=== PATIENT | female | born 1980 | race Hispanic/Latino ===

== ENCOUNTER 2017-11-02 09:39 | Emergency (ER) | payer SELFPAY ==
[2017-11-02 10:47] LABS: Bilirubin,Urine NEG (Negative); Blood,Urine LG (Negative); Ketones,Urine NEG (Negative); Leukocyte Esterase,Urine TR (Negative); Nitrite,Urine NEG (Negative); Urobilinogen,Urine < 2.0 mg/dL (<2.0)
[2017-11-02 10:49] LABS: RBC,Urine > 182.0 /HPF (0.0-6.0)
[2017-11-02 12:40] LABS: Albumin 4.1 g/dL (3.9-5); Albumin/Globulin Ratio 1.2 %; Bilirubin,Total 0.3 mg/dL (0.1-1.2); Chloride 99.2 mmol/L (98-107); Potassium 4.2 mmol/L (3.6-5.0); Total Protein 7.4 g/dL (6.3-8.2)
[2017-11-02 13:52] LABS: Basophils % (Auto) 0.2 % (0.0-1.8); Eosinophils % (Auto) 0.4 % (0.0-4.3); Hematocrit 23.9 % (30.3-42.9); Hemoglobin 7.2 gm/dl (10.1-14.3); Mean Corpuscular HGB Conc 30 % (30-34); Mean Corpuscular Hemoglobin 24 pg (28-32); Mean Corpuscular Volume 80 fl (79-97); Platelet Count 263 K/mm3 (140-440); Red Blood Count 3.01 M/mm3 (3.65-5.03); Red Cell Distribution Width 16.1 % (13.2-15.2); White Blood Count 11.8 K/mm3 (4.5-11.0)
[2017-11-02 15:38] LABS: Creatine Kinase MB 2.6 ng/mL (0.0-4.0); Phosphorous 3.7 mg/dL (2.5-4.5)
[2017-11-02] MEDS ORDERED: NORMODYNE IV ONE (16:15)
--- NOTE | 2017-11-02 16:16 | Cat Scan Report ---
FINAL REPORT EXAM: CT ABDOMEN PELVIS WO CON HISTORY: abd pain TECHNIQUE: CT examination of the abdomen and pelvis without IV contrast PRIORS: 10/13/2015 FINDINGS: Slight lumbar spine curvature with mid right apex. Normal noncontrast appearance of the liver, gallbladder, adrenals, pancreas, and spleen. Normal caliber abdominal aorta and IVC. No retroperitoneal adenopathy. No evidence of mesenteric mass. Again noted are diffusely enlarged kidneys bilaterally containing innumerable fluid density cysts. Multiple bilateral cysts also contain slightly hyperdense homogeneous material suggestive of complex fluid with proteinaceous material or partial blood products. Many of the cysts show interval enlargement from comparison. Also, more cysts contain dense material. Minimal scattered wall calcification also noted in some cysts bilaterally. No definite evidence of renal collecting system calculus or hydronephrosis. No definite ureteral calculus or distention. Very small fat containing umbilical hernia. Normal-appearing stomach and duodenum. No small bowel distention in the abdomen and pelvis. No pelvic free fluid. Decompressed urinary bladder. Normal-appearing rectum. Slight sigmoid diverticulosis without evidence of acute inflammation. Nonspecific low-density foci in the cervix may be nabothian. Otherwise normal-appearing uterus and adnexa. No gross ascites, free air, or colonic distention. Normal-appearing cecum, terminal ileum, and appendix. IMPRESSION: Findings again most compatible with polycystic kidney disease. Cysts demonstrate interval enlargement. More cysts contain dense material which may be proteinaceous or partial blood products. Acuity of a hemorrhagic cyst is indeterminate. Slight sigmoid diverticulosis Nonspecific low-density foci in the cervix may be nabothian cysts
[2017-11-02] MEDS ORDERED: ZOFRAN IV ONE (16:17)
[2017-11-02] MEDS ORDERED: DILAUDID IV ONE (16:17)
[2017-11-02 16:18] LABS: Urine Drugs of Abuse Note Disclamer
--- NOTE | 2017-11-02 16:31 | XRay Report ---
FINAL REPORT PROCEDURE: XR CHEST 1V AP TECHNIQUE: Chest radiograph anteroposterior view. CPT 71150 HISTORY: hypertension COMPARISON: None FINDINGS: Heart: Normal. Mediastinum/Vessels: Normal. Lungs/Pleural space: Normal. Bony thorax: No acute osseous abnormality. Life support devices: None. IMPRESSION: No radiographically evident acute cardiopulmonary disease.
[2017-11-02] MEDS ORDERED: NACL 0.9% 1000 ML 1,000 ML IV ONE (17:35)
[2017-11-02] MEDS ORDERED: NACL 0.9% 500 ML 500 ML IV ONE (17:42)
--- NOTE | 2017-11-02 17:50 | Emergency Department Report ---
ED Abdominal Pain HPI - General Chief Complaint: Abdominal Pain Stated Complaint: ABDOMINAL PAIN,HIGH BLOOD PRESSURE Time Seen by Provider: 11/02/17 16:23 Source: patient Mode of arrival: Ambulatory Limitations: No Limitations - History of Present Illness Initial Comments: 37 yo female who comes in today due to abdominal pain. She states that she's had vaginal bleeding times ten days. She normally has extensive menstrual cycles. She describes the abdominal pain as left upper quadrant, 10/10, with no radiation, but admits to nausea/vomiting. Patient hasn't taken any meds times greater than six months for her medical history. Last meal was earlier this am. She admits to having nausea/vomiting after eating on today. MD Complaint: abdominal pain -: days(s) (ten days ) Location: LUQ, LLQ Radiation: none Severity scale (0 -10): 0 Quality: cramping, aching Consistency: constant Improves With: nothing Worsens With: eating Context: other (excessive bleeding during menstrual cycles ) Associated Symptoms: nausea, vomiting Treatments Prior to Arrival: other (none) - Related Data LMP (females 10-50): this week (currently) Home Medications Medication Instructions Recorded Confirmed Last Taken Acetaminophen [Tylenol Extra 500 mg PO Q6H PRN 11/02/17 11/02/17 Unknown Strength] Ibuprofen [Ibuprofen Ib] 200 mg PO PRN PRN 11/02/17 11/02/17 Unknown Allergies Allergy/AdvReac Type Severity Reaction Status Date / Time No Known Allergies Allergy Verified 04/08/15 16:47 ED Review of Systems ROS: Stated complaint: ABDOMINAL PAIN,HIGH BLOOD PRESSURE Other details as noted in HPI Constitutional: malaise, weakness ENT: denies: ear pain, throat pain Respiratory: denies: cough, shortness of breath, wheezing Cardiovascular: denies: chest pain, palpitations Endocrine: no symptoms reported Gastrointestinal: as per HPI, abdominal pain, nausea, vomiting Genitourinary: denies: urgency, dysuria, discharge Musculoskeletal: denies: back pain, joint swelling, arthralgia Skin: denies: rash, lesions Neurological: denies: headache, weakness, paresthesias Psychiatric: denies: anxiety, depression Hematological/Lymphatic: denies: easy bleeding, easy bruising ED Past Medical Hx - Past Medical History Previous Medical History?: Yes Hx Hypertension: Yes Hx Diabetes: Yes Additional medical history: FIBROIDS. POLYCYSTIC KIDNEYS - Surgical History Past Surgical History?: Yes Additional Surgical History: D & C. OVARY SURGERY? - Social History Smoking Status: Never Smoker Substance Use Type: None - Medications Home Medications: Home Medications Medication Instructions Recorded Confirmed Last Taken Type Acetaminophen [Tylenol Extra 500 mg PO Q6H PRN 11/02/17 11/02/17 Unknown History Strength] Ibuprofen [Ibuprofen Ib] 200 mg PO PRN PRN 11/02/17 11/02/17 Unknown History ED Physical Exam - General Limitations: No Limitations General appearance: alert, in no apparent distress - Head Head exam: Present: atraumatic, normocephalic - Eye Eye exam: Present: normal appearance - ENT ENT exam: Present: mucous membranes moist - Neck Neck exam: Present: normal inspection - Respiratory Respiratory exam: Present: normal lung sounds bilaterally. Absent: respiratory distress - Cardiovascular Cardiovascular Exam: Present: tachycardia - GI/Abdominal GI/Abdominal exam: Present: tenderness (left upper/lower quadrant ) - Extremities Exam Extremities exam: Present: normal inspection - Back Exam Back exam: Present: normal inspection - Neurological Exam Neurological exam: Present: alert, oriented X3 - Psychiatric Psychiatric exam: Present: normal affect, normal mood - Skin Skin exam: Present: warm, dry, intact, normal color. Absent: rash ED Course Vital Signs 11/02/17 11/02/17 11/02/17 09:44 14:58 16:00 Temperature 98.1 F Pulse Rate 101 H 114 H 102 H Respiratory 20 20 18 Rate Blood Pressure 226/101 Blood Pressure 221/120 [Left] O2 Sat by Pulse 98 99 98 Oximetry 11/02/17 11/02/17 11/02/17 16:11 16:14 16:15 Temperature Pulse Rate 102 H Respiratory 20 20 Rate Blood Pressure Blood Pressure 213/104 213/104 [Left] O2 Sat by Pulse 99 100 Oximetry 11/02/17 11/02/17 11/02/17 16:16 16:30 16:46 Temperature Pulse Rate 97 H 79 77 Respiratory 29 H 18 17 Rate Blood Pressure 213/104 210/98 210/98 Blood Pressure [Left] O2 Sat by Pulse 97 83 L 88 Oximetry 11/02/17 11/02/17 11/02/17 17:00 17:30 18:00 Temperature Pulse Rate 81 84 80 Respiratory 20 19 16 Rate Blood Pressure 166/88 166/88 196/85 Blood Pressure [Left] O2 Sat by Pulse 88 95 98 Oximetry 11/02/17 11/02/17 11/02/17 18:16 18:24 18:30 Temperature Pulse Rate 84 88 91 H Respiratory 19 20 Rate Blood Pressure 196/85 191/88 188/78 Blood Pressure [Left] O2 Sat by Pulse 97 100 Oximetry 11/02/17 18:46 Temperature Pulse Rate 101 H Respiratory 15 Rate Blood Pressure 188/78 Blood Pressure [Left] O2 Sat by Pulse 100 Oximetry - Reevaluation(s) Reevaluation #1: 11/02/17 19:44 Patient received ivf's, antibiotics, and a unit of blood. Appears to be a chronic worsening condition. Needs to see balloon dipper and nephrology. Hospitalist to see and evaluate the patient. ED Medical Decision Making - Lab Data Result diagrams: 11/02/17 13:45 11/02/17 10:01 - Radiology Data Radiology results: report reviewed CT abdomen/pelvis revealed polycystic kidney disease. - Medical Decision Making Polycystic kidney disease Anemia Uti Medication non-compliance - Differential Diagnosis Polycystic kidney disease, anemia, uti Critical care attestation.: If time is entered above; I have spent that time in minutes in the direct care of this critically ill patient, excluding procedure time. ED Disposition Clinical Impression: Polycystic kidney disease, Noncompliance, Anemia, UTI (urinary tract infection) , Dehydration Disposition: OP ADMIT IP TO THIS HOSP Is pt being admited?: Yes Does the pt Need Aspirin: No Condition: Stable Instructions: Abdominal Pain (ED) Referrals: PRIMARY CARE [Primary Care Provider] - 3-5 Days Time of Disposition: 19:54
[2017-11-02 18:09] LABS: INR 1.18 (0.87-1.13); Partial Thromboplastin Time 32.3 Sec. (24.2-36.6)
[2017-11-02] MEDS ORDERED: APRESOLINE IV ONE (18:12)
[2017-11-02] MEDS ORDERED: cefTRIAXone 1 GM in NACL 0.9% 20 ML IV ONE (18:30)
[2017-11-02 19:05] VITALS: BP 188/78
--- NOTE | 2017-11-02 19:48 | History and Physical Report ---
History of Present Illness Chief complaint: My stomach hurts History of present illness: 37 yo female with HTN, DM, Uterine Fibroids, who comes in today due to abdominal pain. Pt states that she's had vaginal bleeding times ten days. She normally has extensive menstrual cycles. She describes the abdominal pain as left upper quadrant, 10/10, with no radiation, but admits to nausea/vomiting. Patient hasn't taken any meds times greater than six months for her medical history. Last meal was earlier this am. She admits to having nausea/vomiting after eating on today. Pt seen and evaluated in ED. CT Abdomen pelvis was unremarkable for acute findings. Pt medically optimized and discharged home. Pt instructed to f/u pcp 1wk. Past History Past Medical History: diabetes, hypertension Past Surgical History: Other (D&C) Social history: single. denies: smoking, alcohol abuse Family history: diabetes, hypertension Medications and Allergies Allergies Allergy/AdvReac Type Severity Reaction Status Date / Time No Known Allergies Allergy Verified 04/08/15 16:47 Home Medications Medication Instructions Recorded Confirmed Last Taken Type Acetaminophen [Tylenol Extra 500 mg PO Q6H PRN 11/02/17 11/02/17 Unknown History Strength] HYDROmorphone [Dilaudid] 1 mg PO Q4HR #20 tablet 11/02/17 Unknown Rx Ibuprofen [Ibuprofen Ib] 200 mg PO PRN PRN 11/02/17 11/02/17 Unknown History Lisinopril [Zestril TAB] 40 mg PO QDAY #30 tablet 11/02/17 Unknown Rx Review of Systems Constitutional: no weight loss, no weight gain, no fever, no chills Ears, nose, mouth and throat: no ear pain, no ear discharge, no tinnitis Breasts: no change in shape, no swelling, no mass Cardiovascular: no chest pain, no orthopnea, no palpitations Respiratory: no cough, no cough with sputum, no excessive sputum Gastrointestinal: abdominal pain, no change in bowel habits, no hematemesis, no coffee ground emesis Genitourinary Female: no pelvic pain, no flank pain, no menorrhagia Rectal: no pain, no incontinence, no bleeding Musculoskeletal: no neck pain, no shooting arm pain, no arm numbness/tingling Integumentary: no rash, no pruritis, no redness Neurological: no head injury, no transient paralysis, no paralysis, no weakness Psychiatric: no anxiety, no memory loss, no change in sleep habits Endocrine: no cold intolerance, no polyphagia Hematologic/Lymphatic: no easy bruising, no easy bleeding Allergic/Immunologic: no urticaria, no allergic rhinitis, no wheezing Exam - Constitutional Vitals: Temp Pulse Resp BP Pulse Ox 98.1 F 101 H 15 188/78 100 11/02/17 09:44 11/02/17 18:46 11/02/17 18:46 11/02/17 18:46 11/02/17 18:46 General appearance: Present: no acute distress, well-nourished - EENT Eyes: Present: PERRL ENT: hearing intact, clear oral mucosa - Neck Neck: Present: supple, normal ROM - Respiratory Respiratory effort: normal Respiratory: bilateral: CTA - Cardiovascular Heart Sounds: Present: S1 & S2. Absent: rub, click - Extremities Extremities: pulses symmetrical, No edema Peripheral Pulses: within normal limits - Abdominal General gastrointestinal: Present: soft, non-tender, non-distended, normal bowel sounds Female genitourinary: Present: normal - Integumentary Integumentary: Present: clear, warm, dry - Musculoskeletal Musculoskeletal: gait normal, strength equal bilaterally - Psychiatric Psychiatric: appropriate mood/affect, intact judgment & insight - Neurologic Neurologic: CNII-XII intact, moves all extremities Results - Labs CBC & Chem 7: 11/02/17 13:45 11/02/17 10:01 Labs: Abnormal lab results 11/02/17 11/02/17 11/02/17 Range/Units 10:00 10:01 13:45 WBC 11.8 H (4.5-11.0) K/mm3 RBC 3.01 L (3.65-5.03) M/mm3 Hgb 7.2 L (10.1-14.3) gm/dl Hct 23.9 L (30.3-42.9) % MCH 24 L (28-32) pg RDW 16.1 H (13.2-15.2) % Lymph % (Auto) 11.3 L (13.4-35.0) % Seg Neutrophils % 83.2 H (40.0-70.0) % Seg Neutrophils # 9.8 H (1.8-7.7) K/mm3 PT (12.2-14.9) Sec. INR (0.87-1.13) Carbon Dioxide 21 L (22-30) mmol/L BUN 42 H (7-17) mg/dL Creatinine 4.0 H (0.7-1.2) mg/dL Glucose 138 H (65-100) mg/dL CK-MB (CK-2) Rel Index (0-4) Troponin T (0.00-0.029) ng/mL Urine WBC (Auto) 12.0 H (0.0-6.0) /HPF Crossmatch 11/02/17 11/02/17 11/02/17 Range/Units 14:55 14:58 17:45 WBC (4.5-11.0) K/mm3 RBC (3.65-5.03) M/mm3 Hgb (10.1-14.3) gm/dl Hct (30.3-42.9) % MCH (28-32) pg RDW (13.2-15.2) % Lymph % (Auto) (13.4-35.0) % Seg Neutrophils % (40.0-70.0) % Seg Neutrophils # (1.8-7.7) K/mm3 PT 15.6 H (12.2-14.9) Sec. INR 1.18 H (0.87-1.13) Carbon Dioxide (22-30) mmol/L BUN (7-17) mg/dL Creatinine (0.7-1.2) mg/dL Glucose (65-100) mg/dL CK-MB (CK-2) Rel Index 5.0 H (0-4) Troponin T 0.033 H (0.00-0.029) ng/mL Urine WBC (Auto) (0.0-6.0) /HPF Crossmatch See Detail Assessment and Plan - Patient Problems (1) Abdominal pain Status: Acute Plan to address problem: CT Abdomen pelvis, negative for acute findings Pt medically optimized and discharged home. Pt to f/u pcp 1wk,
[2017-11-02] MEDS ORDERED: MOTRIN PO PRN (20:05)
[2017-11-02] MEDS ORDERED: TYLENOL PO PRN (20:05)
[2017-11-02] MEDS ORDERED: ZESTRIL PO ONE (20:05)
== END 2017-11-02 22:14 | disposition admitted as inpatient to this hospital (09) ==
LOC: ED 09:39
DX: Q61.3 Polycystic kidney, unspecified (principal); N39.0 Urinary tract infection, site not specified; E86.0 Dehydration; D64.9 Anemia, unspecified; I10 Essential (primary) hypertension; E11.9 Type 2 diabetes mellitus without complications
CPT/HCPCS: 36415; 71010; 74176; 80053; 80061; 80307; 81001; 82550; 82553; 83690; 84100; 84484; 84703; 85025; 85610; 85730; 86850; 86900; 86901; 86920; 96361; 96374; 96375; 99284; J0360; J0696; J1170; J2405; J7030

== ENCOUNTER 2018-12-03 12:28 | Inpatient (IN) | payer BC ==
[2018-12-03 13:37] LABS: Basophils % (Auto) 0.6 % (0.0-1.8); Eosinophils % (Auto) 0.8 % (0.0-4.3); Hematocrit 26.9 % (30.3-42.9); Hemoglobin 8.8 gm/dl (10.1-14.3); Lymphocytes # (Auto) 0.6 K/mm3 (1.2-5.4); Lymphocytes % (Auto) 11.5 % (13.4-35.0); Mean Corpuscular HGB Conc 33 % (30-34); Mean Corpuscular Volume 87 fl (79-97); Monocytes # (Auto) 0.3 K/mm3 (0.0-0.8); Monocytes % (Auto) 4.7 % (0.0-7.3); Platelet Count 199 K/mm3 (140-440); Red Blood Count 3.11 M/mm3 (3.65-5.03); Red Cell Distribution Width 19.2 % (13.2-15.2)
--- NOTE | 2018-12-03 13:53 | XRay Report ---
ROUTINE CHEST, TWO VIEWS: HISTORY: chest pain. Heart size appears decreased since 10/23/18. A dual-lumen right IJ venous catheter terminates in the superior right atrium. The trachea, heart, mediastinal contour, lung ying and bony thorax are unremarkable. IMPRESSION: No acute cardiopulmonary process.
[2018-12-03 13:58] LABS: Albumin 3.8 g/dL (3.9-5); Calcium 9.6 mg/dL (8.4-10.2)
[2018-12-03 14:22] LABS: Chol/HDL Ratio 4.35 %
[2018-12-03] MEDS ORDERED: NITRO-BID 2% TP ONE (14:25)
[2018-12-03] MEDS ORDERED: ASPIRIN PO ONE (14:26)
--- NOTE | 2018-12-03 14:30 | Emergency Department Report ---
HPI - General Chief Complaint: Recheck/Abnormal Lab/Rx Time Seen by Provider: 12/03/18 14:18 - HPI HPI: Room 6 The patient is a 38-year-old female presenting with the chief complaint of abnormal EKG. The patient states she went her outside production inspector's office today for preop clearance to receive surgery for her lower extremity wounds. The patient states this morning she had one episode of nausea vomiting and felt very anxious but denied having chest pain or shortness of breath. At the outside production inspector's office the patient was found to have pain and ST segment depression concerning for ischemia so she was subsequently sent to the ED for further evaluation. Patient currently denies chest pain shortness of breath or nausea Location: [See above] Duration: [See above] Quality: Nausea Severity: [See above] Modifying factors: [see above] Context: [see above] Mode of transportation: [not driving] ED Past Medical Hx - Past Medical History Previous Medical History?: Yes Hx Hypertension: Yes Hx Diabetes: Yes (Not being treated at present) Hx Renal Disease: Yes Additional medical history: FIBROIDS. POLYCYSTIC KIDNEYS - Surgical History Past Surgical History?: Yes Additional Surgical History: D & C. OVARY SURGERY? - Family History Family history: no significant - Social History Smoking Status: Former Smoker (none 4 years) Substance Use Type: None - Medications Home Medications: Home Medications Medication Instructions Recorded Confirmed Last Taken Type cloNIDine [Catapres] 0.1 mg PO Q12HR #60 tablet 10/28/18 11/29/18 Unknown Rx hydrALAZINE [Apresoline TAB] 50 mg PO Q8HR #90 tablet 10/28/18 11/29/18 Unknown Rx oxyCODONE /ACETAMINOPHEN [Percocet 1 tab PO Q4H PRN #10 tablet 10/28/18 11/29/18 Unknown Rx 5/325 mg] traMADol [Ultram 50 MG tab] 50 mg PO Q6H PRN 11/29/18 11/29/18 Unknown History ED Review of Systems ROS: Stated complaint: HEART PATIENT/DOC ORDERED Other details as noted in HPI Constitutional: denies: diaphoresis Eyes: denies: eye pain ENT: denies: throat pain Respiratory: denies: shortness of breath Cardiovascular: denies: chest pain Endocrine: no symptoms reported Gastrointestinal: nausea, vomiting Musculoskeletal: denies: back pain Neurological: denies: headache Physical Exam - Physical Exam Vital Signs: Vital Signs 12/03/18 12:53 Temperature 97.5 F L Pulse Rate 93 H Respiratory 22 Rate Blood Pressure 151/69 O2 Sat by Pulse 100 Oximetry Physical Exam: GENERAL: The patient is well-developed well-nourished female lying on stretcher not appearing to be in acute distress. [] HEENT: Normocephalic. Atraumatic. Extraocular motions are intact. Patient has moist mucous membranes. NECK: Supple. Trachea midline CHEST/LUNGS: Clear to auscultation. There is no respiratory distress noted. HEART/CARDIOVASCULAR: Regular. There is no tachycardia. There is no gallop rub or murmur. ABDOMEN: Abdomen is soft, nontender. Patient has normal bowel sounds. There is no abdominal distention. SKIN: There is no rash. There is no edema. There is no diaphoresis. NEURO: The patient is awake, alert, and oriented. The patient is cooperative. The patient has normal speech MUSCULOSKELETAL: There is no evidence of acute injury. ED Course Vital Signs 12/03/18 12:53 Temperature 97.5 F L Pulse Rate 93 H Respiratory 22 Rate Blood Pressure 151/69 O2 Sat by Pulse 100 Oximetry ED Medical Decision Making - Lab Data Result diagrams: 12/03/18 13:16 12/03/18 13:16 Laboratory Tests 12/03/18 12/03/18 13:16 13:16 WBC 5.4 RBC 3.11 L Hgb 8.8 L Hct 26.9 L MCV 87 MCH 28 MCHC 33 RDW 19.2 H Plt Count 199 Lymph % (Auto) 11.5 L Ponce % (Auto) 4.7 Eos % (Auto) 0.8 Baso % (Auto) 0.6 Lymph # 0.6 L Ponce # 0.3 Eos # 0.0 Baso # 0.0 Seg Neutrophils % 82.4 H Seg Neutrophils # 4.4 Sodium 139 Potassium 3.2 L Chloride 90.5 L Carbon Dioxide 33 H Anion Gap 19 BUN 10 Creatinine 3.8 H Estimated GFR 13 BUN/Creatinine Ratio 3 Glucose 97 Calcium 9.6 Total Bilirubin 0.60 AST 26 ALT 10 Alkaline Phosphatase 93 Troponin T 0.085 H Total Protein 7.4 Albumin 3.8 L Albumin/Globulin Ratio 1.1 Triglycerides 202 H Cholesterol 174 LDL Cholesterol Direct 105 HDL Cholesterol 40 Cholesterol/HDL Ratio 4.35 - EKG Data -: EKG Interpreted by Me EKG shows normal: sinus rhythm Rate: normal - EKG Data Interpretation: nonspecific ST-T wave francheska (diffuse ST segment depression. T- wave inversion in leads 1, 2, aVL, V4, V5, V6), subendocardial ischemia - Radiology Data Radiology results: report reviewed (chest x-ray), image reviewed (chest x-ray) interpreted by me: Chest x-ray-no focal infiltrates, no pneumothorax [facility] [address] [place] [address] XRay Report Signed Patient: DES VICENTE MR#: [id number] : 1980 Acct:[id number] Age/Sex: 38 / F ADM Date: 12/03/18 Loc: ED Attending Dr: Ordering Physician: CLARA SAMUEL Date of Service: 12/03/18 Procedure(s): XR chest routine 2V Accession Number(s): [id number] cc: CLARA SAMUEL Fluoro Time In Minutes: ROUTINE CHEST, TWO VIEWS: HISTORY: chest pain. Heart size appears decreased since 10/23/18. A dual-lumen right IJ venous catheter terminates in the superior right atrium. The trachea, heart, mediastinal contour, lung ying and bony thorax are unremarkable. IMPRESSION: No acute cardiopulmonary process. Transcribed By: TTR Dictated By: JOVANNA ZAYAS JR, MD Electronically Authenticated By: JOVANNA ZAYAS JR, MD Signed Date/Time: 12/03/18 135 DD/ 1350 TD/TT: 12/03/18 1350 - Differential Diagnosis ACS, GERD, pericarditis, angina Critical care attestation.: If time is entered above; I have spent that time in minutes in the direct care of this critically ill patient, excluding procedure time. ED Disposition Clinical Impression: ESRD (end stage renal disease), Diffuse ST segment depression, Nausea & vomiting Disposition: OP ADMIT IP TO THIS HOSP Is pt being admited?: Yes Does the pt Need Aspirin: Yes Condition: Fair Referrals: PRIMARY CARE, [Primary Care Provider] - 3-5 Days Time of Disposition: 14:32 (hospitalist notified (Dr العراقي))
--- NOTE | 2018-12-03 15:00 | History and Physical Report ---
History of Present Illness Chief complaint: My heart doctor sent me in History of present illness: 38 YO Female HTN, DM, Uterine Fibroids, PCKD, ESRD on HD (M,W,F), Medication Noncompliance presents to ED for evaluation. Pt states that she has experienced anxiety, nausea, and a single episode of vomiting today. 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 Pt instructed to present to [facility] ED for further care and evaluation. Pt seen and evaluated in ED and found to have NSTEMI, as well as ESRD, Diastolic CHF. Pt admitted to telemetry. Pt initiated on Heparin drip as per cardiology team. Pt denies fever, chills, CP, Palpitations, NVD, Syncope, Trauma, BRBPR, Unint entional weight loss, hematuria, headache, loss of consciousness, or recent ill contacts. Nephrology consulted in ED. Cardiology consulted in ED. Past History Past Medical History: diabetes, hypertension, other (PCKD< ) Past Surgical History: Other (Dialysis Access, Ovarian surgery) Social history: single. denies: smoking, alcohol abuse, prescription drug abuse Family history: no significant family history Medications and Allergies Allergies Allergy/AdvReac Type Severity Reaction Status Date / Time No Known Allergies Allergy Verified 11/29/18 14:29 Home Medications Medication Instructions Recorded Confirmed Last Taken Type cloNIDine [Catapres] 0.1 mg PO Q12HR #60 tablet 10/28/18 12/03/18 12/03/18 Rx hydrALAZINE [Apresoline TAB] 50 mg PO Q8HR #90 tablet 10/28/18 12/03/18 12/03/18 Rx oxyCODONE /ACETAMINOPHEN [Percocet 1 tab PO Q4H PRN #10 tablet 10/28/18 12/03/18 Unknown Rx 5/325 mg] traMADol [Ultram 50 MG tab] 50 mg PO Q6H PRN 11/29/18 12/03/18 12/03/18 History Review of Systems Constitutional: no weight loss, no weight gain, no fever, no chills Ears, nose, mouth and throat: no ear pain, no ear discharge, no tinnitis, no decreased hearing, no nose pain, no nasal congestion, no nasal discharge Breasts: no change in shape, no swelling, no mass Cardiovascular: no chest pain, no orthopnea, no palpitations, no rapid/irregular heart beat, no syncope, no lightheadedness, no shortness of breath, no dyspnea on exertion, no paroxysmal nocturnal dyspnea, no claudication, no leg edema, no decreased exercise tolerance Respiratory: no cough, no cough with sputum, no excessive sputum, no hemoptysis, no shortness of breath Gastrointestinal: no nausea, no vomiting, no constipation, no change in bowel habits Genitourinary Female: no pelvic pain, no flank pain, no menorrhagia, no dysuria, no urinary frequency, no urgency Rectal: no pain, no incontinence, no bleeding, no itching Musculoskeletal: no neck stiffness, no neck pain, no shooting arm pain, no arm numbness/tingling, no shooting leg pain, no hot joints Integumentary: no rash, no pruritis, no redness, no sores, no wounds Neurological: no transient paralysis, no paralysis, no weakness, no parathesias, no numbness Psychiatric: no anxiety, no memory loss, no change in sleep habits, no sleep d isturbances, no insomnia, no hypersomnia, no change in appetite, no suicidal ideation Endocrine: no cold intolerance, no heat intolerance, no polyphagia, no excessive thirst Hematologic/Lymphatic: no easy bruising, no easy bleeding, no lymphadenopathy, no lymphedema Allergic/Immunologic: no urticaria, no allergic rhinitis, no wheezing, no persistent infections, no anaphylaxis, no angioedema Exam - Constitutional Vitals: Temp Pulse Resp BP Pulse Ox 97.5 F L 93 H 22 151/69 100 12/03/18 12:53 12/03/18 12:53 12/03/18 12:53 12/03/18 12:53 12/03/18 12:53 General appearance: Present: mild distress - EENT Eyes: Present: PERRL ENT: hearing intact, clear oral mucosa - Neck Neck: Present: supple, normal ROM - Respiratory Respiratory effort: normal Respiratory: bilateral: CTA - Cardiovascular Heart Sounds: Present: S1 & S2. Absent: rub, click - Extremities Extremities: pulses symmetrical, No edema Peripheral Pulses: within normal limits - Abdominal General gastrointestinal: Present: soft, non-tender, non-distended, normal bowel sounds Female genitourinary: Present: normal - Integumentary Integumentary: Present: clear, warm, dry - Musculoskeletal Musculoskeletal: gait normal, strength equal bilaterally - Psychiatric Psychiatric: appropriate mood/affect, intact judgment & insight - Neurologic Neurologic: CNII-XII intact, moves all extremities Results - Labs CBC & Chem 7: 12/03/18 15:21 12/03/18 13:16 Labs: Abnormal lab results 12/03/18 12/03/18 Range/Units 13:16 13:16 RBC 3.11 L (3.65-5.03) M/mm3 Hgb 8.8 L (10.1-14.3) gm/dl Hct 26.9 L (30.3-42.9) % RDW 19.2 H (13.2-15.2) % Lymph % (Auto) 11.5 L (13.4-35.0) % Lymph # 0.6 L (1.2-5.4) K/mm3 Seg Neutrophils % 82.4 H (40.0-70.0) % Potassium 3.2 L (3.6-5.0) mmol/L Chloride 90.5 L (98-107) mmol/L Carbon Dioxide 33 H (22-30) mmol/L Creatinine 3.8 H (0.7-1.2) mg/dL Troponin T 0.085 H (0.00-0.029) ng/mL Albumin 3.8 L (3.9-5) g/dL Triglycerides 202 H (2-149) mg/dL Assessment and Plan - Patient Problems (1) NSTEMI (non-ST elevated myocardial infarction) Current Visit: Yes Status: Acute Plan to address problem: Cardiology consulted in ED, Heparin drip, Nitro, NPO after midnight, Cardiac cath in the AM as per cardiology team. (2) Diastolic CHF Current Visit: Yes Status: Acute Qualifiers: Heart failure chronicity: acute on chronic Qualified Code(s): I50.33 - Acute on chronic diastolic (congestive) heart failure Plan to address problem: Admit to telemetry, serial cardiac enzymes, strict I/O, daily weight, monitor uop q shift, afterload reduction, chest x ray, (3) ESRD (end stage renal disease) Current Visit: Yes Status: Acute Plan to address problem: Nephrology consulted in ED, dialysis as per renal team. (4) Diabetes Current Visit: Yes Status: Acute Plan to address problem: ADA diet, insulin, accu check (5) Hypertension Current Visit: No Status: Acute Qualifiers: Hypertension type: essential hypertension Qualified Code(s): I10 - Essential (primary) hypertension Plan to address problem: monitor bp q shift, continue medical management. (6) Venous stasis Current Visit: No Status: Acute Plan to address problem: supportive care, wound care consult (7) DVT prophylaxis Current Visit: No Status: Acute Plan to address problem: heparin drip, early ambulation
[2018-12-03] MEDS ORDERED: SODIUM CHLORIDE FLUSH SYRINGE 10 ML IV PRN ×2 (15:14→15:18)
[2018-12-03] MEDS ORDERED: ZOFRAN IV PRN (15:14)
[2018-12-03] MEDS ORDERED: TYLENOL PO PRN (15:14)
[2018-12-03 15:36] LABS: Hematocrit 25.7 % (30.3-42.9); Hemoglobin 8.2 gm/dl (10.1-14.3)
[2018-12-03] MEDS: HEPARIN 10,000 UNITS/10 ML IV ONE ×2 (15:41→17:59)
[2018-12-03 15:47] LABS: Partial Thromboplastin Time 29.1 Sec. (24.2-36.6)
[2018-12-03] MEDS ORDERED: HEPARIN/ 0.45% NACL-25,000 UNIT/500 ML 25,000 UNIT/500 ML BAG IV SCH (16:00)
--- NOTE | 2018-12-03 18:56 | Event Note ---
Date: 12/03/18 38-year-old patient reported to her medical accounts receivable specialist Dr. Padron this afternoon, ostensibly for preoperative cardiac assessment in anticipation of debridement of an ulcer on her right heel. She reported no chest pain or shortness of breath, but ECG done was markedly abnormal with marked inferolateral ST segment depression appeared consistent with ischemia. The patient was sent to the emergency room, for further evaluation. The repeat EKG in the emergency room showed left ventricular hypertrophy with some repolarization abnormalities, quite improved from the earlier ECG tracing. She is admitted for further cardiac evaluation. Please see Dr. Padron's office history and physical for details. Patient is currently in her room on telemetry, looks and feels comfortable, no chest pain and no shortness of breath. Comorbidities include end-stage renal disease on hemodialysis on Tuesdays, and Saturdays. Last hemodialysis was earlier today before her visit to Dr. Padron. Recommendations: Review of the serial ECGs suggest a concern for labile ischemic changes, which need further invasive evaluation in a patient with multiple risk factors who is preoperative for noncardiac surgery. We will schedule a cardiac catheterization in the morning.
[2018-12-03] MEDS: NORMODYNE PO SCH (21:19)
[2018-12-03] MEDS: PROCARDIA XL PO SCH (21:19)
[2018-12-03] MEDS: MORPHINE IV PRN (21:20)
[2018-12-03] MEDS: SODIUM CHLORIDE FLUSH SYRINGE 10 ML IV SCH (21:20)
[2018-12-04] MEDS: MORPHINE IV PRN ×3 (05:55→21:10)
[2018-12-04] MEDS ORDERED: NITRO-BID 2% TP SCH (06:00)
[2018-12-04 07:26] LABS: Calcium 9.4 mg/dL (8.4-10.2)
[2018-12-04 08:03] LABS: Partial Thromboplastin Time 70.4 Sec. (24.2-36.6)
[2018-12-04 08:45] LABS: INR 0.95 (0.87-1.13)
[2018-12-04 09:06] LABS: PT 1 Hour Mix TNR; Prothrombin Time TNR Sec.
--- NOTE | 2018-12-04 10:16 | Consultation ---
History of Present Illness - Reason for Consult Consult date: 12/04/18 end stage renal disease - History of Present Illness patient with ESRD on HD every TTS last treeatment yesterday, she was sent from transportation dispatch manager's office due to abnormal EKG, in the ED she was found to have elevated tropnin and was started on heparin drip, planning for LHC per cardiology, renal consult was requested for ESRD management Past History Past Medical History: diabetes, hypertension, other (PCKD< ) Past Surgical History: Other (Dialysis Access, Ovarian surgery) Social history: single. denies: smoking, alcohol abuse, prescription drug abuse Family history: no significant family history Medications and Allergies Allergies Allergy/AdvReac Type Severity Reaction Status Date / Time No Known Allergies Allergy Verified 11/29/18 14:29 Home Medications Medication Instructions Recorded Confirmed Last Taken Type cloNIDine [Catapres] 0.1 mg PO Q12HR #60 tablet 10/28/18 12/03/18 12/03/18 Rx hydrALAZINE [Apresoline TAB] 50 mg PO Q8HR #90 tablet 10/28/18 12/03/18 12/03/18 Rx oxyCODONE /ACETAMINOPHEN [Percocet 1 tab PO Q4H PRN #10 tablet 10/28/18 12/03/18 Unknown Rx 5/325 mg] traMADol [Ultram 50 MG tab] 50 mg PO Q6H PRN 11/29/18 12/03/18 12/03/18 History Active Meds: Active Medications Acetaminophen (Tylenol) 650 mg PO Q4H PRN PRN Reason: Pain MILD(1-3)/Fever >100.5/LO Aspirin (Halfprin Ec) 81 mg PO QDAY [facility] Heparin Sodium/Sodium Chloride (Heparin/ 0.45% Nacl-25,000 Unit/500 Ml) 25,000 unit in 500 mls @ 21 mls/hr IV TITR NIRANJAN; Protocol Last Titration: 12/03/18 22:30 Dose: 1,050 units/hr, 21 mls/hr Documented by: Labetalol HCl (Normodyne) 200 mg PO BID NIRANJAN Last Admin: 12/03/18 21:19 Dose: 200 mg Documented by: Morphine Sulfate (Morphine) 2 mg IV Q4H PRN PRN Reason: Pain, Moderate (4-6) Last Admin: 01/09/19 05:55 Dose: 2 mg Documented by: Nifedipine (Procardia Xl) 60 mg PO Q12HR [facility] Last Admin: 12/03/18 21:19 Dose: 60 mg Documented by: Nitroglycerin (Nitro-Bid 2%) 1 inch TP QIDNTG [facility]; Protocol Last Admin: 12/04/18 06:12 Dose: 1 inch Documented by: Ondansetron HCl (Zofran) 4 mg IV Q8H PRN PRN Reason: Nausea And Vomiting Pneumococcal Polyvalent Vaccine (Pneumovax 23) 0.5 ml IM .ONCE ONE Stop: 12/04/18 12:01 Sodium Chloride (Sodium Chloride Flush Syringe 10 Ml) 10 ml IV BID [facility] Last Admin: 12/03/18 21:20 Dose: 10 ml Documented by: Sodium Chloride (Sodium Chloride Flush Syringe 10 Ml) 10 ml IV PRN PRN PRN Reason: LINE FLUSH Review of Systems All systems: negative (chest pain) Exam - Vital Signs Vital signs: Vital Signs Temp Pulse Resp BP Pulse Ox 97.5 F L 93 H 22 151/69 100 12/03/18 12:53 12/03/18 12:53 12/03/18 12:53 12/03/18 12:53 12/03/18 12:53 - General Appearance General appearance: well-developed, well-nourished, appears stated age EENT: ATNC, PERRL, mucous membranes moist Neck: Present: neck supple Respiratory: Clear to Ascultation Heart: regular, S1S2 Gastrointestinal: Present: normoactive bowel sounds Integumentary: no rash, warm and dry Neurologic: no focal deficit, no asterixis, alert and oriented x3 Musculoskeletal: Present: other (nop edema in BLE) Psychiatric: mood/affect appropriate, cooperative Results - Lab Results 12/03/18 15:21 12/04/18 06:44 Most recent lab results Calcium 9.4 mg/dL (8.4-10.2) 12/04/18 06:44 Magnesium 2.00 mg/dL (1.7-2.3) 12/03/18 13:16 Assessment and Plan NSTEMI ESRD on HD anemia in CKD HTN DM type II - LHC per cardiology - HD tomorrow via permcath for clearance and volume removal - iron panel in AM, epogen with HD - phos in AM - renally dose meds - strict I&O - daily weights Michel Craft MD [phone]
[2018-12-04] MEDS: HALFPRIN EC PO SCH (10:51)
[2018-12-04] MEDS ORDERED: PROCRIT IV PRN (11:00)
[2018-12-04] MEDS ORDERED: HEPARIN/NS 5000 UNIT/500ML(CATH LAB) 1,000 ML IR ONE (11:13)
[2018-12-04] MEDS ORDERED: HEPARIN 10,000 UNITS/10 ML ONE (11:14)
[2018-12-04] MEDS ORDERED: CALAN ONE (11:14)
[2018-12-04] MEDS ORDERED: NITROGLYCERIN SYRINGE 0 ML ONE (11:15)
[2018-12-04] MEDS ORDERED: NACL 0.9% 500 ML 500 ML ONE (11:38)
[2018-12-04] MEDS: VERSED ONE ×3 (11:43→11:51)
[2018-12-04] MEDS: SUBLIMAZE ONE ×2 (11:43→11:47)
[2018-12-04] MEDS: XYLOCAINE 2% INFILTRATI ONE ×2 (11:43→11:49)
[2018-12-04] MEDS ORDERED: PNEUMOVAX 23 IM ONE (12:00)
[2018-12-04] MEDS ORDERED: AFLURIA QUAD 2018-2019 SYRINGE IM ONE (12:00)
--- NOTE | 2018-12-04 12:25 | Progress Note ---
Assessment and Plan Dynamic ECG changes suggesting ischemia in the absence of chest pain or shortness of breath. Cath today revealed Ostial diagonal disease and occluded OM1 that reconstitutes distally via left to left collaterals, normal LVEF and normal LVEDP ESRD due to polycystic kidney disease Anemia of chronic disease Calciphylaxis requiring future debridment Recommendations: Medical therapy Dr Che will also review coronary angiograms prior to discharge for a second opinion Add Imdur, lipitor, aspirin and continue labetalol and nifedipine Outpatient cardiac follow-up Subjective Date of service: 12/04/18 Principal diagnosis: Abnormal ECG changes Interval history: Patient underwent a groin LHC today Objective Vital Signs Temp Pulse Resp BP Pulse Ox 12/04/18 09:23 71 18 165/70 95 12/04/18 09:22 97.9 F 12/04/18 05:16 98.1 F 71 18 125/62 96 12/04/18 00:42 65 12/04/18 00:16 98.1 F 67 18 183/80 97 12/03/18 21:43 98 12/03/18 19:40 98.0 F 85 18 197/90 96 12/03/18 18:37 98.3 F 90 18 210/96 98 12/03/18 16:51 78 14 218/108 98 12/03/18 16:41 83 21 218/108 99 12/03/18 16:31 84 17 218/108 98 12/03/18 16:21 80 20 218/108 98 12/03/18 16:11 78 15 218/108 97 12/03/18 16:00 81 18 218/108 98 12/03/18 15:51 83 15 204/100 97 12/03/18 15:31 84 21 204/100 97 12/03/18 15:15 83 15 193/91 99 12/03/18 15:01 82 15 193/91 98 12/03/18 14:45 82 14 204/100 100 12/03/18 14:30 84 17 99 12/03/18 14:28 84 18 12/03/18 12:53 97.5 F L 93 H 22 151/69 100 - Physical Examination Neck: Positive: neck supple Cardiac: Positive: Reg Rate and Rhythm Lungs: Positive: Normal Exam Abdomen: Positive: Soft Extremities: Absent: edema - Labs and Meds Cardiac Enzymes 12/03/18 Range/Units 13:16 AST 26 (5-40) units/L Coagulation 12/03/18 12/04/18 12/04/18 Range/Units 15:21 07:01 07:01 PT 13.6 TNR 13.1 (12.2-14.9) Sec. INR 1.00 TNR 0.95 (0.87-1.13) APTT 29.1 70.4 H* (24.2-36.6) Sec. Lipids 12/03/18 Range/Units 13:16 Triglycerides 202 H (2-149) mg/dL Cholesterol 174 (50-199) mg/dL HDL Cholesterol 40 (40-59) mg/dL Cholesterol/HDL Ratio 4.35 % CBC 12/03/18 12/03/18 Range/Units 13:16 15:21 WBC 5.4 (4.5-11.0) K/mm3 RBC 3.11 L (3.65-5.03) M/mm3 Hgb 8.8 L 8.2 L (10.1-14.3) gm/dl Hct 26.9 L 25.7 L (30.3-42.9) % Plt Count 199 166 (140-440) K/mm3 Lymph # 0.6 L (1.2-5.4) K/mm3 [place] # 0.3 (0.0-0.8) K/mm3 Eos # 0.0 (0.0-0.4) K/mm3 Baso # 0.0 (0.0-0.1) K/mm3 Comprehensive Metabolic Panel 12/03/18 12/04/18 Range/Units 13:16 06:44 Sodium 139 140 (137-145) mmol/L Potassium 3.2 L 3.2 L (3.6-5.0) mmol/L Chloride 90.5 L 92.4 L (98-107) mmol/L Carbon Dioxide 33 H 33 H (22-30) mmol/L BUN 10 14 (7-17) mg/dL Creatinine 3.8 H 5.6 H (0.7-1.2) mg/dL Glucose 97 122 H (65-100) mg/dL Calcium 9.6 9.4 (8.4-10.2) mg/dL AST 26 (5-40) units/L ALT 10 (7-56) units/L Alkaline Phosphatase 93 (35-129) units/L Total Protein 7.4 (6.3-8.2) g/dL Albumin 3.8 L (3.9-5) g/dL
--- NOTE | 2018-12-04 12:30 | Consultation ---
History of Present Illness Consult date: 12/04/18 Reason for consult: other (Calciphylaxis of BLE's) - History of present illness History of present illness: Pt is a Wound Clinic pt. She has BLE ulcerations secondary to calciphylaxis. The wounds are very tender and the pt will not allow debridement in the Clinic. She was therefore scheduled for debridement under anesthesia. Because of her h/o a decreased ejection fraction, a pre-op Cardiology consultation was requested. She saw the Iap Displays Analyst yesterday and it was recommended that she be admitted for further testing. Her surgery for BLE debridement was scheduled for tomorrow at 1:30 PM. Past History Past Medical History: diabetes, hypertension, other (PCKD< ) Past Surgical History: Other (Dialysis Access, Ovarian surgery) Social history: single. denies: smoking, alcohol abuse, prescription drug abuse Family history: no significant family history Medications and Allergies Allergies Allergy/AdvReac Type Severity Reaction Status Date / Time No Known Allergies Allergy Verified 11/29/18 14:29 Home Medications Medication Instructions Recorded Confirmed Last Taken Type cloNIDine [Catapres] 0.1 mg PO Q12HR #60 tablet 10/28/18 12/03/18 12/03/18 Rx hydrALAZINE [Apresoline TAB] 50 mg PO Q8HR #90 tablet 10/28/18 12/03/18 12/03/18 Rx oxyCODONE /ACETAMINOPHEN [Percocet 1 tab PO Q4H PRN #10 tablet 10/28/18 12/03/18 Unknown Rx 5/325 mg] traMADol [Ultram 50 MG tab] 50 mg PO Q6H PRN 11/29/18 12/03/18 12/03/18 History Active Meds: Active Medications Acetaminophen (Tylenol) 650 mg PO Q4H PRN PRN Reason: Pain MILD(1-3)/Fever >100.5/LO Aspirin (Halfprin Ec) 81 mg PO QDAY [facility] Last Admin: 12/04/18 10:51 Dose: 81 mg Documented by: Epoetin Chris (Procrit) 10,000 unit IV WANDA PRN PRN Reason: hemodialysis Labetalol HCl (Normodyne) 200 mg PO BID [facility] Last Admin: 12/03/18 21:19 Dose: 200 mg Documented by: Morphine Sulfate (Morphine) 2 mg IV Q4H PRN PRN Reason: Pain, Moderate (4-6) Last Admin: 12/04/18 05:55 Dose: 2 mg Documented by: Nifedipine (Procardia Xl) 60 mg PO Q12HR [facility] Last Admin: 12/03/18 21:19 Dose: 60 mg Documented by: Nitroglycerin (Nitro-Bid 2%) 1 inch TP QIDNTG [facility]; Protocol Last Admin: 12/04/18 06:12 Dose: 1 inch Documented by: Ondansetron HCl (Zofran) 4 mg IV Q8H PRN PRN Reason: Nausea And Vomiting Sodium Chloride (Sodium Chloride Flush Syringe 10 Ml) 10 ml IV BID [facility] Last Admin: 12/03/18 21:20 Dose: 10 ml Documented by: Sodium Chloride (Sodium Chloride Flush Syringe 10 Ml) 10 ml IV PRN PRN PRN Reason: LINE FLUSH Review of Systems All systems: negative (none) Exam Vital Signs Temp Pulse Resp BP Pulse Ox 97.5 F L 93 H 22 151/69 100 12/03/18 12:53 12/03/18 12:53 12/03/18 12:53 12/03/18 12:53 12/03/18 12:53 - General physical appearance Positive: well developed, well nourished, no distress - Eyes Positive: PERRL, normal occular movement - ENT Positive: normal pinna, normal nares, normal mucosa, no hearing loss, no conges tion - Neck Positive: no masses, no bruits, trachea midline, no venous distension - Respiratory Positive: normal expansion, normal respiratory effort, clear to auscultation - Cardiovascular Rhythm: regular Heart Sounds: Present: S1 & S2. Absent: rub, click - Extremities Extremities: no ischemia, pulses symmetrical, No edema - Breasts Breasts: deferred - Abdomen Abdomen: Present: soft, bowel sounds normal. Absent: tender, distended Hernia: none - Genitourinary Female Genitourinary: deferred - Integumentary other (There are extensive bilateral ulcerations of her legs. These consist of necrotic skin/eschar without associated signs of infection.) - Neurologic Neurologic: alert and oriented to time, place and person, motor strength and sensation are grossly intact - Musculoskeletal normal gait, normal posture - Psychiatric Psychiatric: appropriate mood/affect, intact judgment & insight Results - Labs 12/03/18 15:21 12/04/18 06:44 Abnormal lab results 12/03/18 12/03/18 12/03/18 Range/Units 13:16 13:16 13:16 RBC 3.11 L (3.65-5.03) M/mm3 Hgb 8.8 L (10.1-14.3) gm/dl Hct 26.9 L (30.3-42.9) % RDW 19.2 H (13.2-15.2) % Lymph % (Auto) 11.5 L (13.4-35.0) % Lymph # 0.6 L (1.2-5.4) K/mm3 Seg Neutrophils % 82.4 H (40.0-70.0) % APTT (24.2-36.6) Sec. Potassium 3.2 L (3.6-5.0) mmol/L Chloride 90.5 L (98-107) mmol/L Carbon Dioxide 33 H (22-30) mmol/L Creatinine 3.8 H (0.7-1.2) mg/dL Glucose (65-100) mg/dL POC Glucose (70-105) Troponin T 0.085 H (0.00-0.029) ng/mL NT-Pro-B Natriuret Pep 00513 H (0-450) pg/mL Albumin 3.8 L (3.9-5) g/dL Triglycerides 202 H (2-149) mg/dL 12/03/18 12/03/18 12/03/18 Range/Units 15:21 17:20 18:40 RBC (3.65-5.03) M/mm3 Hgb 8.2 L (10.1-14.3) gm/dl Hct 25.7 L (30.3-42.9) % RDW (13.2-15.2) % Lymph % (Auto) (13.4-35.0) % Lymph # (1.2-5.4) K/mm3 Seg Neutrophils % (40.0-70.0) % APTT (24.2-36.6) Sec. Potassium (3.6-5.0) mmol/L Chloride (98-107) mmol/L Carbon Dioxide (22-30) mmol/L Creatinine (0.7-1.2) mg/dL Glucose (65-100) mg/dL POC Glucose 155 H (70-105) Troponin T 0.097 H (0.00-0.029) ng/mL NT-Pro-B Natriuret Pep (0-450) pg/mL Albumin (3.9-5) g/dL Triglycerides (2-149) mg/dL 12/03/18 12/04/18 12/04/18 Range/Units 21:21 06:44 07:01 RBC (3.65-5.03) M/mm3 Hgb (10.1-14.3) gm/dl Hct (30.3-42.9) % RDW (13.2-15.2) % Lymph % (Auto) (13.4-35.0) % Lymph # (1.2-5.4) K/mm3 Seg Neutrophils % (40.0-70.0) % APTT 70.4 H* (24.2-36.6) Sec. Potassium 3.2 L (3.6-5.0) mmol/L Chloride 92.4 L (98-107) mmol/L Carbon Dioxide 33 H (22-30) mmol/L Creatinine 5.6 H (0.7-1.2) mg/dL Glucose 122 H (65-100) mg/dL POC Glucose (70-105) Troponin T 0.091 H (0.00-0.029) ng/mL NT-Pro-B Natriuret Pep (0-450) pg/mL Albumin (3.9-5) g/dL Triglycerides (2-149) mg/dL Diabetes panel 12/03/18 12/04/18 Range/Units 13:16 06:44 Sodium 139 140 (137-145) mmol/L Potassium 3.2 L 3.2 L (3.6-5.0) mmol/L Chloride 90.5 L 92.4 L (98-107) mmol/L Carbon Dioxide 33 H 33 H (22-30) mmol/L BUN 10 14 (7-17) mg/dL Creatinine 3.8 H 5.6 H (0.7-1.2) mg/dL Glucose 97 122 H (65-100) mg/dL Calcium 9.6 9.4 (8.4-10.2) mg/dL AST 26 (5-40) units/L ALT 10 (7-56) units/L Alkaline Phosphatase 93 (35-129) units/L Total Protein 7.4 (6.3-8.2) g/dL Albumin 3.8 L (3.9-5) g/dL Triglycerides 202 H (2-149) mg/dL HDL Cholesterol 40 (40-59) mg/dL Calcium panel 12/03/18 12/04/18 Range/Units 13:16 06:44 Calcium 9.6 9.4 (8.4-10.2) mg/dL Albumin 3.8 L (3.9-5) g/dL Pituitary panel 12/03/18 12/04/18 Range/Units 13:16 06:44 Sodium 139 140 (137-145) mmol/L Potassium 3.2 L 3.2 L (3.6-5.0) mmol/L Chloride 90.5 L 92.4 L (98-107) mmol/L Carbon Dioxide 33 H 33 H (22-30) mmol/L BUN 10 14 (7-17) mg/dL Creatinine 3.8 H 5.6 H (0.7-1.2) mg/dL Glucose 97 122 H (65-100) mg/dL Calcium 9.6 9.4 (8.4-10.2) mg/dL Adrenal panel 12/03/18 12/04/18 Range/Units 13:16 06:44 Sodium 139 140 (137-145) mmol/L Potassium 3.2 L 3.2 L (3.6-5.0) mmol/L Chloride 90.5 L 92.4 L (98-107) mmol/L Carbon Dioxide 33 H 33 H (22-30) mmol/L BUN 10 14 (7-17) mg/dL Creatinine 3.8 H 5.6 H (0.7-1.2) mg/dL Glucose 97 122 H (65-100) mg/dL Calcium 9.6 9.4 (8.4-10.2) mg/dL Total Bilirubin 0.60 (0.1-1.2) mg/dL AST 26 (5-40) units/L ALT 10 (7-56) units/L Alkaline Phosphatase 93 (35-129) units/L Total Protein 7.4 (6.3-8.2) g/dL Albumin 3.8 L (3.9-5) g/dL Assessment and Plan - Patient Problems (1) Calciphylaxis of left lower extremity with nonhealing ulcer Current Visit: Yes Status: Acute Plan to address problem: 1) I will follow the pt daily to determine if she is cleared for surgery. 2) The Wound Care nurse has been consulted. 3) I will make her NPO after MN in case she is cleared for surgery but does not go home.
--- NOTE | 2018-12-04 12:48 | Cardiac Catherization Report ---
ORDERING PHYSICIAN: Mikie Che MD INDICATION FOR PROCEDURE: Dynamic ischemic EKG changes. PROCEDURE PERFORMED: 1. Selective left and right coronary angiography. 2. Left ventriculography. DESCRIPTION OF PROCEDURE: After obtaining the consent, the patient was draped using sterile technique. A 2% lidocaine was injected into the right groin. Using the micropuncture technique, a 5-Angolan vascular sheath was inserted into the right femoral artery. A 5-Angolan JL3.5 catheter was used to selectively engage left coronary artery. A 5-Angolan 3DRC catheter was used to selectively engage the right coronary artery. A 5-Angolan JR4 catheter was used to hand inject left ventriculogram. No complications occurred during the procedure. Hemostasis was achieved at the end of the procedure with manual pressure. SPECIMEN REMOVED: None. ESTIMATED BLOOD LOSS: Minimal. ANESTHESIA: The total sedation administered 2 mg of IV Versed and 50 mcg of IV fentanyl. Physician and patient [id number] sedation start time 11:47 a.m. Physician and patient [id number] sedation stop time: 12:09 p.m. Total sedation time was 22 minutes. FINDINGS: HEMODYNAMICS: Aortic pressure was 181/81, left ventricular systolic pressure was 182 mmHg. Left ventricular end-diastolic pressure was 9 mmHg. No significant gradient was noted across the left ventricular outflow tract. CARDIAC STRUCTURES: The left ventricle is normal in size and systolic function. The left ventricular ejection fraction is estimated at 60%. There is no regional wall motion abnormality. CORONARY ANATOMY: 1. This is a right dominant circulation. 2. The left main is angiographically normal. 3. LAD has evidence of mild diffuse disease. There is evidence of a 60% ostial and proximal D1 stenosis. This is a small-caliber vessel. There is also evidence of an ostial 70% D2 stenosis. This is also a small-caliber vessel. 4. The left circumflex artery exhibits evidence of moderate diffuse disease in the proximal segment. The first obtuse marginal is proximally occluded. The first obtuse marginal reconstituted distally via gkyh-[id number] collaterals. The remaining segments of the circumflex artery has [id number] luminal irregularities. 5. The right coronary artery is a dominant vessel. The right coronary artery has mild luminal irregularities. IMPRESSION: 1. Ostial diagonal small vessel disease. 2. Occluded proximal OM1 with distal reconstitution via [id number]-kr-hwic collaterals. 3. Normal left ventricular size and systolic function. 4. Normal left ventricular diastolic pressures. RECOMMENDATIONS: To intensify and maximize medical therapy. JOB# [id number] KIMBERLY/CLAIRE
[2018-12-04] MEDS ORDERED: MORPHINE ONE (12:52)
--- NOTE | 2018-12-04 16:09 | Progress Note ---
Assessment and Plan ABNORMAL ECG changes - suggesting ischemia in the absence of chest pain or shortness of breath. - Cath today revealed Ostial diagonal disease and occluded OM1 that reconstitutes distally via left to left collaterals, normal LVEF and normal , recommended medical therapy but also waiting on 2nd opinion ESRD due to polycystic kidney disease - HD per renal Anemia of chronic disease - monitor H/H Calciphylaxis b/l LE - Dr candelaria consulted, NPO after midnight for possible debridment, if clears by cardiology Subjective Date of service: 12/04/18 Principal diagnosis: Abnormal ECG changes Interval history: pt seen and examined No acute event O/n s/p cardiac cath today Denies any chest pain Objective - Exam Narrative Exam: - General physical appearance Positive: well developed, well nourished, no distress - Eyes Positive: PERRL, normal occular movement - ENT Positive: normal pinna, normal nares, normal mucosa, no hearing loss, no congestion - Neck Positive: no masses, no bruits, trachea midline, no venous distension - Respiratory Positive: normal expansion, normal respiratory effort, clear to auscultation - Cardiovascular Rhythm: regular Heart Sounds: Present: S1 & S2. Absent: rub, click - Extremities Extremities: no ischemia, pulses symmetrical, No edema - Breasts Breasts: deferred - Abdomen Abdomen: Present: soft, bowel sounds normal. Absent: tender, distended Hernia: none - Genitourinary Female Genitourinary: deferred - Integumentary other (There are extensive bilateral ulcerations of her legs. These consist of necrotic skin/eschar without associated signs of infection.) - Neurologic Neurologic: alert and oriented to time, place and person, motor strength and sensation are grossly intact - Musculoskeletal normal gait, normal posture - Psychiatric Psychiatric: appropriate mood/affect, intact judgment & insight - Constitutional Vitals: Vital Signs - 12hr 12/04/18 12/04/18 12/04/18 05:16 09:22 09:23 Temperature 98.1 F 97.9 F Pulse Rate 71 71 Respiratory 18 18 Rate Blood Pressure 125/62 165/70 O2 Sat by Pulse 96 95 Oximetry 12/04/18 12/04/18 12/04/18 12:34 12:45 13:00 Temperature 98.5 F 98.0 F Pulse Rate 74 72 Respiratory 18 16 Rate Blood Pressure 139/67 157/73 O2 Sat by Pulse 100 100 Oximetry 12/04/18 12/04/18 12/04/18 13:15 13:30 14:00 Temperature Pulse Rate 69 62 73 Respiratory 14 13 16 Rate Blood Pressure 149/73 166/72 151/85 O2 Sat by Pulse 100 100 100 Oximetry - Labs CBC & Chem 7: 12/05/18 04:59 12/05/18 04:59 Labs: Abnormal lab results 12/03/18 12/03/18 12/03/18 Range/Units 17:20 18:40 21:21 APTT (24.2-36.6) Sec. Potassium (3.6-5.0) mmol/L Chloride (98-107) mmol/L Carbon Dioxide (22-30) mmol/L Creatinine (0.7-1.2) mg/dL Glucose (65-100) mg/dL POC Glucose 155 H (70-105) Troponin T 0.097 H 0.091 H (0.00-0.029) ng/mL 12/04/18 12/04/18 Range/Units 06:44 07:01 APTT 70.4 H* (24.2-36.6) Sec. Potassium 3.2 L (3.6-5.0) mmol/L Chloride 92.4 L (98-107) mmol/L Carbon Dioxide 33 H (22-30) mmol/L Creatinine 5.6 H (0.7-1.2) mg/dL Glucose 122 H (65-100) mg/dL POC Glucose (70-105) Troponin T (0.00-0.029) ng/mL
[2018-12-04] MEDS: NORMODYNE PO SCH ×2 (17:04→21:10)
[2018-12-04] MEDS: PROCARDIA XL PO SCH ×2 (17:04→21:09)
[2018-12-04] MEDS: SODIUM CHLORIDE FLUSH SYRINGE 10 ML IV SCH ×2 (21:10→22:27)
[2018-12-05] MEDS: MORPHINE IV PRN ×3 (04:04→21:22)
[2018-12-05 05:37] LABS: Hematocrit 23.8 % (30.3-42.9); Hemoglobin 7.7 gm/dl (10.1-14.3); Lymphocytes % (Auto) 19.7 % (13.4-35.0); Mean Corpuscular HGB Conc 32 % (30-34); Mean Corpuscular Volume 88 fl (79-97); Platelet Count 181 K/mm3 (140-440); Red Blood Count 2.71 M/mm3 (3.65-5.03); Red Cell Distribution Width 19.9 % (13.2-15.2)
[2018-12-05 05:38] LABS: Basophils % (Auto) 0.8 % (0.0-1.8); Eosinophils # (Auto) 0.2 K/mm3 (0.0-0.4); Eosinophils % (Auto) 4.5 % (0.0-4.3); Lymphocytes # (Auto) 0.9 K/mm3 (1.2-5.4); Monocytes # (Auto) 0.3 K/mm3 (0.0-0.8); Monocytes % (Auto) 5.7 % (0.0-7.3)
[2018-12-05 06:00] LABS: Calcium 9.2 mg/dL (8.4-10.2)
--- NOTE | 2018-12-05 08:25 | Progress Note ---
Assessment and Plan - Patient Problems (1) Calciphylaxis of left lower extremity with nonhealing ulcer Current Visit: Yes Status: Acute Plan to address problem: 1) Awaiting 2nd Cardiology opinion. I will cancel surgery today and give pt a renal failure diet. Her surgery can be rescheduled once her cardiac evaluation is completed. Subjective Date of service: 12/05/18 Patient Reports: Positive: no new complaints Objective Vital Signs - 12hr 12/04/18 12/04/18 12/04/18 22:06 23:00 23:13 Temperature 97.0 F L Pulse Rate 63 69 Respiratory 18 Rate Blood Pressure 159/74 O2 Sat by Pulse 99 95 Oximetry 12/05/18 04:22 Temperature 98.0 F Pulse Rate 66 Respiratory 18 Rate Blood Pressure 108/44 O2 Sat by Pulse 96 Oximetry - Integumentary other (Legs are without change.) - Labs 12/05/18 04:59 12/05/18 04:59 Diabetes panel 12/05/18 Range/Units 04:59 Sodium 140 (137-145) mmol/L Potassium 3.3 L (3.6-5.0) mmol/L Chloride 94.7 L (98-107) mmol/L Carbon Dioxide 30 (22-30) mmol/L BUN 18 H (7-17) mg/dL Creatinine 7.0 H (0.7-1.2) mg/dL Glucose 110 H (65-100) mg/dL Calcium 9.2 (8.4-10.2) mg/dL Calcium panel 12/05/18 Range/Units 04:59 Calcium 9.2 (8.4-10.2) mg/dL Phosphorus 3.90 (2.5-4.5) mg/dL Pituitary panel 12/05/18 Range/Units 04:59 Sodium 140 (137-145) mmol/L Potassium 3.3 L (3.6-5.0) mmol/L Chloride 94.7 L (98-107) mmol/L Carbon Dioxide 30 (22-30) mmol/L BUN 18 H (7-17) mg/dL Creatinine 7.0 H (0.7-1.2) mg/dL Glucose 110 H (65-100) mg/dL Calcium 9.2 (8.4-10.2) mg/dL Adrenal panel 12/05/18 Range/Units 04:59 Sodium 140 (137-145) mmol/L Potassium 3.3 L (3.6-5.0) mmol/L Chloride 94.7 L (98-107) mmol/L Carbon Dioxide 30 (22-30) mmol/L BUN 18 H (7-17) mg/dL Creatinine 7.0 H (0.7-1.2) mg/dL Glucose 110 H (65-100) mg/dL Calcium 9.2 (8.4-10.2) mg/dL
[2018-12-05] MEDS: HALFPRIN EC PO SCH (10:34)
[2018-12-05] MEDS: NORMODYNE PO SCH ×2 (10:35→21:22)
[2018-12-05] MEDS: PROCARDIA XL PO SCH ×2 (10:35→21:22)
[2018-12-05] MEDS: IMDUR PO SCH (10:35)
--- NOTE | 2018-12-05 11:03 | Event Note ---
Date: 12/05/18 Patient's cardiac catheterization angiograms were reviewed: There is a chronic total occlusion of a small caliber distal obtuse marginal branch, diffuse faintly by left to left collaterals. Otherwise, the large caliber vessels including the left main, LAD, large first obtuse marginal, and dominant right coronary artery are WITHOUT significant obstructive lesions. Left ventricular systolic function is well-preserved with ejection fraction 60% in the MOCK projection. Recommendation: Okay to proceed with surgery, low cardiac risk. Medical therapy for small vessel disease, to include oral antiplatelet therapy, beta blockers, statin and long-acting nitrates.
--- NOTE | 2018-12-05 11:29 | Progress Note ---
Assessment and Plan NSTEMI ESRD on HD anemia in CKD HTN DM type II - HD today via permcath for clearance and volume removal - iron panel is pending, epogen with HD - renally dose meds - strict I&O - daily weights Michel Craft MD [phone] Subjective Date of service: 12/05/18 Principal diagnosis: Abnormal ECG changes Interval history: seen during HD, tolerating Objective - Vital Signs Vital signs: Vital Signs - 12hr 12/05/18 12/05/18 12/05/18 04:22 08:32 08:34 Temperature 98.0 F 98.0 F Pulse Rate 66 74 Respiratory 18 18 Rate Blood Pressure 108/44 137/69 O2 Sat by Pulse 96 98 Oximetry 12/05/18 12/05/18 12/05/18 08:55 09:00 09:15 Temperature 98.0 F Pulse Rate 72 70 67 Respiratory 18 Rate Blood Pressure 137/70 137/70 134/68 O2 Sat by Pulse Oximetry 12/05/18 12/05/18 12/05/18 09:30 09:45 10:00 Temperature Pulse Rate 68 70 69 Respiratory Rate Blood Pressure 134/68 125/69 129/64 O2 Sat by Pulse Oximetry 12/05/18 12/05/18 12/05/18 10:15 10:30 10:45 Temperature Pulse Rate 70 69 76 Respiratory Rate Blood Pressure 134/66 134/69 130/56 O2 Sat by Pulse Oximetry - General Appearance General appearance: well-developed, well-nourished, appears stated age EENT: ATNC, PERRL, mucous membranes moist Neck: no JVD, no carotid bruit Respiratory: Present: Clear to Ascultation. Absent: Rales, Ronchi Cardiology: regular, S1S2 Gastrointestinal: normoactive bowel sounds, no tenderness, no distended Integumentary: no rash, warm and dry Neurologic: no focal deficit, no asterixis, alert and oriented x3 Musculoskeletal: other (no edema in BLE) Psychiatric: mood/affect appropriate, cooperative - Lab 12/05/18 04:59 12/05/18 04:59 Most recent lab results Calcium 9.2 mg/dL (8.4-10.2) 12/05/18 04:59 Phosphorus 3.90 mg/dL (2.5-4.5) 12/05/18 04:59 Magnesium 2.00 mg/dL (1.7-2.3) 12/03/18 13:16 Medications & Allergies - Medications Allergies/Adverse Reactions: Allergies No Known Allergies Allergy (Verified 11/29/18 14:29) Home Medications: Home Medications Medication Instructions Recorded Confirmed Last Taken Type cloNIDine [Catapres] 0.1 mg PO Q12HR #60 tablet 10/28/18 12/03/18 12/03/18 Rx hydrALAZINE [Apresoline TAB] 50 mg PO Q8HR #90 tablet 10/28/18 12/03/18 12/03/18 Rx oxyCODONE /ACETAMINOPHEN [Percocet 1 tab PO Q4H PRN #10 tablet 10/28/18 12/03/18 Unknown Rx 5/325 mg] traMADol [Ultram 50 MG tab] 50 mg PO Q6H PRN 11/29/18 12/03/18 12/03/18 History Active Medications: Generic Name Dose Route Start Last Admin Trade Name Freq PRN Reason Stop Dose Admin Acetaminophen 650 mg 12/03/18 15:14 Tylenol PO Q4H PRN Pain MILD(1-3)/Fever >100.5/LO Aspirin 81 mg 12/04/18 10:00 12/04/18 10:51 Halfprin Ec PO 81 mg QDAY NIRANJAN Administration Atorvastatin Calcium 40 mg 12/04/18 22:00 12/04/18 21:10 Lipitor PO 40 mg QHS NIRANJAN Administration Epoetin Chris 10,000 unit 12/04/18 11:00 Procrit IV WANDA PRN hemodialysis Isosorbide Mononitrate 30 mg 12/05/18 10:00 Imdur PO QDAY NIRANJAN Labetalol HCl 200 mg 12/03/18 22:00 12/04/18 21:10 Normodyne PO 200 mg BID NIRANJAN Administration Morphine Sulfate 2 mg 12/03/18 15:14 12/05/18 04:04 Morphine IV 2 mg Q4H PRN Administration Pain, Moderate (4-6) Nifedipine 60 mg 12/03/18 22:00 12/04/18 21:09 Procardia Xl PO 60 mg Q12HR NIRANJAN Administration Ondansetron HCl 4 mg 12/03/18 15:14 Zofran IV Q8H PRN Nausea And Vomiting Sodium Chloride 10 ml 12/03/18 22:00 12/04/18 22:27 Sodium Chloride Flush Syringe 10 Ml IV Not Given BID NIRANJAN Sodium Chloride 10 ml 12/03/18 15:18 Sodium Chloride Flush Syringe 10 Ml IV PRN PRN LINE FLUSH
[2018-12-05] MEDS ORDERED: NACL 0.9 (PRIMING MACHINE ONLY DIALYSIS) MC ONE ×2 (11:41→12:22)
--- NOTE | 2018-12-05 15:38 | Progress Note ---
Assessment and Plan ABNORMAL ECG changes - suggesting ischemia in the absence of chest pain or shortness of breath. - left heart Cath revealed Ostial diagonal disease and occluded OM1 that reconstitutes distally via left to left collaterals, normal LVEF and normal , recommended medical therapy for now ESRD due to polycystic kidney disease - HD per renal Anemia of chronic disease - monitor H/H Calciphylaxis b/l LE - Dr candelaria consulted, cleared by cardiology for possible surgical intervention, will wait for Dr. Candelaria to schedule Subjective Date of service: 12/05/18 Principal diagnosis: Abnormal ECG changes Interval history: pt seen and examined No acute event O/n s/p HD today Denies any chest pain Objective - Exam Narrative Exam: - General physical appearance Positive: well developed, well nourished, no distress - Eyes Positive: PERRL, normal occular movement - ENT Positive: normal pinna, normal nares, normal mucosa, no hearing loss, no congestion - Neck Positive: no masses, no bruits, trachea midline, no venous distension - Respiratory Positive: normal expansion, normal respiratory effort, clear to auscultation - Cardiovascular Rhythm: regular Heart Sounds: Present: S1 & S2. Absent: rub, click - Extremities Extremities: no ischemia, pulses symmetrical, No edema - Breasts Breasts: deferred - Abdomen Abdomen: Present: soft, bowel sounds normal. Absent: tender, distended Hernia: none - Genitourinary Female Genitourinary: deferred - Integumentary other (There are extensive bilateral ulcerations of her legs. These consist of necrotic skin/eschar without associated signs of infection.) - Neurologic Neurologic: alert and oriented to time, place and person, motor strength and sensation are grossly intact - Musculoskeletal normal gait, normal posture - Psychiatric Psychiatric: appropriate mood/affect, intact judgment & insight - Constitutional Vitals: Vital Signs - 12hr 12/05/18 12/05/18 12/05/18 04:22 08:32 08:34 Temperature 98.0 F 98.0 F Pulse Rate 66 74 Respiratory 18 18 Rate Blood Pressure 108/44 137/69 O2 Sat by Pulse 96 98 Oximetry 12/05/18 12/05/18 12/05/18 08:55 09:00 09:15 Temperature 98.0 F Pulse Rate 72 70 67 Respiratory 18 Rate Blood Pressure 137/70 137/70 134/68 O2 Sat by Pulse Oximetry 12/05/18 12/05/18 12/05/18 09:30 09:45 10:00 Temperature Pulse Rate 68 70 69 Respiratory Rate Blood Pressure 134/68 125/69 129/64 O2 Sat by Pulse Oximetry 12/05/18 12/05/18 12/05/18 10:15 10:30 10:45 Temperature Pulse Rate 70 69 76 Respiratory Rate Blood Pressure 134/66 134/69 130/56 O2 Sat by Pulse Oximetry 12/05/18 12/05/18 12/05/18 11:00 11:15 11:30 Temperature Pulse Rate 68 73 70 Respiratory Rate Blood Pressure 139/61 143/76 137/74 O2 Sat by Pulse Oximetry 12/05/18 12/05/18 12/05/18 11:45 11:55 12:00 Temperature 98.0 F Pulse Rate 76 76 70 Respiratory 18 Rate Blood Pressure 143/78 140/78 162/80 O2 Sat by Pulse Oximetry 12/05/18 12/05/18 14:00 14:01 Temperature 98.4 F Pulse Rate 79 Respiratory 18 Rate Blood Pressure 137/64 O2 Sat by Pulse 96 Oximetry - Labs CBC & Chem 7: 12/06/18 06:57 12/06/18 06:57 Labs: Abnormal lab results 12/05/18 12/05/18 Range/Units 04:59 04:59 RBC 2.71 L (3.65-5.03) M/mm3 Hgb 7.7 L (10.1-14.3) gm/dl Hct 23.8 L (30.3-42.9) % RDW 19.9 H (13.2-15.2) % Eos % (Auto) 4.5 H (0.0-4.3) % Lymph # 0.9 L (1.2-5.4) K/mm3 Potassium 3.3 L (3.6-5.0) mmol/L Chloride 94.7 L (98-107) mmol/L BUN 18 H (7-17) mg/dL Creatinine 7.0 H (0.7-1.2) mg/dL Glucose 110 H (65-100) mg/dL TIBC 173 L (250-450) mcg/dL
[2018-12-05] MEDS: SODIUM CHLORIDE FLUSH SYRINGE 10 ML IV SCH ×2 (21:23)
[2018-12-06 07:28] LABS: Basophils % (Auto) 0.5 % (0.0-1.8); Eosinophils # (Auto) 0.2 K/mm3 (0.0-0.4); Eosinophils % (Auto) 5.4 % (0.0-4.3); Hematocrit 22.4 % (30.3-42.9); Hemoglobin 7.2 gm/dl (10.1-14.3); Lymphocytes % (Auto) 22.2 % (13.4-35.0); Mean Corpuscular HGB Conc 32 % (30-34); Mean Corpuscular Volume 88 fl (79-97); Monocytes # (Auto) 0.2 K/mm3 (0.0-0.8); Monocytes % (Auto) 5.5 % (0.0-7.3); Platelet Count 165 K/mm3 (140-440); Red Blood Count 2.53 M/mm3 (3.65-5.03); Red Cell Distribution Width 19.7 % (13.2-15.2)
[2018-12-06 07:50] LABS: Calcium 9.2 mg/dL (8.4-10.2)
[2018-12-06 09:34] VITALS: BP 151/72
[2018-12-06] MEDS: IMDUR PO SCH (10:38)
[2018-12-06] MEDS: PROCARDIA XL PO SCH (10:38)
[2018-12-06] MEDS: NORMODYNE PO SCH (10:38)
[2018-12-06] MEDS: HALFPRIN EC PO SCH (10:38)
--- NOTE | 2018-12-06 10:56 | Progress Note ---
Assessment and Plan NSTEMI ESRD on HD anemia in CKD HTN DM type II - no indication for HD today - Ok to be discharged from renal standpoint, next HD tomorrow as an outpatient is [facility] - renally dose meds - strict I&O - daily weights Michel Craft MD [phone] Subjective Date of service: 12/06/18 Principal diagnosis: Abnormal ECG changes Interval history: tolerated HD yesterday Objective - Vital Signs Vital signs: Vital Signs - 12hr 12/05/18 12/06/18 12/06/18 23:33 04:06 09:33 Temperature 98.0 F 98.0 F 98.6 F Pulse Rate 75 79 82 Respiratory 20 18 18 Rate Blood Pressure 185/78 135/61 151/72 O2 Sat by Pulse 96 96 99 Oximetry 12/06/18 12/06/18 09:59 10:38 Temperature Pulse Rate Respiratory Rate Blood Pressure 151/72 O2 Sat by Pulse 98 Oximetry - General Appearance General appearance: well-developed, well-nourished, appears stated age EENT: ATNC, PERRL, mucous membranes moist Neck: no JVD, no carotid bruit Respiratory: Present: Clear to Ascultation. Absent: Rales, Ronchi Cardiology: regular, S1S2 Gastrointestinal: normoactive bowel sounds, no tenderness, no distended, no masses Integumentary: no rash, warm and dry Neurologic: no focal deficit, no asterixis, alert and oriented x3 Musculoskeletal: other (no edema in BLE) Psychiatric: mood/affect appropriate, cooperative - Lab 12/06/18 06:57 12/06/18 06:57 Most recent lab results Calcium 9.2 mg/dL (8.4-10.2) 12/06/18 06:57 Phosphorus 4.30 mg/dL (2.5-4.5) 12/06/18 06:57 Magnesium 2.00 mg/dL (1.7-2.3) 12/03/18 13:16 Medications & Allergies - Medications Allergies/Adverse Reactions: Allergies No Known Allergies Allergy (Verified 11/29/18 14:29) Home Medications: Home Medications Medication Instructions Recorded Confirmed Last Taken Type cloNIDine [Catapres] 0.1 mg PO Q12HR #60 tablet 10/28/18 12/03/18 12/03/18 Rx hydrALAZINE [Apresoline TAB] 50 mg PO Q8HR #90 tablet 10/28/18 12/03/18 12/03/18 Rx oxyCODONE /ACETAMINOPHEN [Percocet 1 tab PO Q4H PRN #10 tablet 10/28/18 12/03/18 Unknown Rx 5/325 mg] traMADol [Ultram 50 MG tab] 50 mg PO Q6H PRN 11/29/18 12/03/18 12/03/18 History Active Medications: Generic Name Dose Route Start Last Admin Trade Name Freq PRN Reason Stop Dose Admin Acetaminophen 650 mg 12/03/18 15:14 Tylenol PO Q4H PRN Pain MILD(1-3)/Fever >100.5/LO Aspirin 81 mg 12/04/18 10:00 12/06/18 10:38 Halfprin Ec PO 81 mg QDAY NIRANJAN Administration Atorvastatin Calcium 40 mg 12/04/18 22:00 12/05/18 21:22 Lipitor PO 40 mg QHS NIRANJAN Administration Epoetin Chris 10,000 unit 12/04/18 11:00 Procrit IV WANDA PRN hemodialysis Isosorbide Mononitrate 30 mg 12/05/18 10:00 12/06/18 10:38 Imdur PO 30 mg QDAY NIRANJAN Administration Labetalol HCl 200 mg 12/03/18 22:00 12/06/18 10:38 Normodyne PO 200 mg BID NIRANJAN Administration Morphine Sulfate 2 mg 12/03/18 15:14 12/05/18 21:22 Morphine IV 2 mg Q4H PRN Administration Pain, Moderate (4-6) Nifedipine 60 mg 12/03/18 22:00 12/06/18 10:38 Procardia Xl PO 60 mg Q12HR NIRANJAN Administration Ondansetron HCl 4 mg 12/03/18 15:14 Zofran IV Q8H PRN Nausea And Vomiting Sodium Chloride 10 ml 12/03/18 22:00 12/05/18 21:23 Sodium Chloride Flush Syringe 10 Ml IV 10 ml BID NIRANJAN Administration Sodium Chloride 10 ml 12/03/18 15:18 Sodium Chloride Flush Syringe 10 Ml IV PRN PRN LINE FLUSH
--- NOTE | 2018-12-06 12:09 | Progress Note ---
Addendum entered and electronically signed by ROSANNA PATINO MD 12/06/18 12:33: Agree with [employer]PA[employer] assessment and plan May proceed with surgery cardiac elizondo Original Note: Assessment and Plan Abnormal ECG Cath today revealed chronic total occlusion of a small caliber distal obtuse marginal branch, diffuse faintly by left to left collaterals. Otherwise, the large caliber vessels including the left main, LAD, large first obtuse marginal, and dominant right coronary artery are WITHOUT s ignificant obstructive lesions. Left ventricular systolic function is well-preserved with ejection fraction 60%. ESRD due to polycystic kidney disease Anemia of chronic disease Calciphylaxis requiring future debridment Recommendations: Okay to proceed with surgery, low cardiac risk. Continue medical therapy for small vessel disease, to include oral antiplatelet therapy, beta blockers, statin and long-acting nitrates. Once discharged, patient will follow up with Dr Padron at [facility]. within 1-2 weeks. Subjective Date of service: 12/06/18 Principal diagnosis: Abnormal ECG changes Interval history: Patient has no complaints. She denies chest pain and shortness of breath. Objective Vital Signs Temp Pulse Resp BP Pulse Ox 12/06/18 10:38 151/72 12/06/18 09:59 98 12/06/18 09:33 98.6 F 82 18 151/72 99 12/06/18 04:06 98.0 F 79 18 135/61 96 12/05/18 23:33 98.0 F 75 20 185/78 96 12/05/18 19:44 97.0 F L 82 20 162/64 100 12/05/18 17:41 98.4 F 12/05/18 17:39 85 18 149/66 98 12/05/18 14:01 98.4 F 12/05/18 14:00 79 18 137/64 96 12/05/18 13:15 22 12/05/18 12:45 22 12/05/18 12:19 98 - Physical Examination General: No Apparent Distress HEENT: Positive: PERRL Neck: Positive: neck supple Cardiac: Positive: Reg Rate and Rhythm Lungs: Positive: Decreased Breath Sounds Neuro: Positive: Grossly Intact Abdomen: Positive: Soft Extremities: Absent: edema - Labs and Meds CBC 12/06/18 Range/Units 06:57 WBC 4.4 L (4.5-11.0) K/mm3 RBC 2.53 L (3.65-5.03) M/mm3 Hgb 7.2 L (10.1-14.3) gm/dl Hct 22.4 L (30.3-42.9) % Plt Count 165 (140-440) K/mm3 Lymph # 1.0 L (1.2-5.4) K/mm3 [place] # 0.2 (0.0-0.8) K/mm3 Eos # 0.2 (0.0-0.4) K/mm3 Baso # 0.0 (0.0-0.1) K/mm3 Comprehensive Metabolic Panel 12/06/18 Range/Units 06:57 Sodium 141 (137-145) mmol/L Potassium 3.5 L (3.6-5.0) mmol/L Chloride 98.3 (98-107) mmol/L Carbon Dioxide 30 (22-30) mmol/L BUN 10 (7-17) mg/dL Creatinine 5.8 H (0.7-1.2) mg/dL Glucose 123 H (65-100) mg/dL Calcium 9.2 (8.4-10.2) mg/dL
[2018-12-06] MEDS: MORPHINE IV PRN (14:53)
[2018-12-06] MEDS: SODIUM CHLORIDE FLUSH SYRINGE 10 ML IV SCH (14:55)
--- NOTE | 2018-12-06 16:13 | Discharge Summary ---
Providers - Providers Date of Admission: 12/03/18 15:14 Date of discharge: 12/06/18 Attending physician: PIPPA YAN 12/03/18 Consult to Cardiac Rehabilitation [CONS] Routine Reason For Exam: Phase I 12/03/18 15:18 Consult to Cardiology [CONS] Routine Consulting Provider: CLARA CORBIN Reason For Exam: nstemi 12/03/18 16:16 Consult to Physician [CONS] Routine Comment: Consulting Provider: MARLYS VANN Physician Instructions: Reason For Exam: ESRD 12/03/18 16:33 Consult to Wound/ET Nurse [CONS] Routine Reason For Exam: wound eval 12/04/18 12:19 Consult to Cardiac Rehabilitation [CONS] Routine Reason For Exam: Cardiac Rehab Evaluation Primary care physician: CYLINDER BLOCK HOLE RELINER Hospitalization Condition: Fair Pertinent studies: CXR, cardiac cath Hospital course: This is a 38 y/o female with ESRD on HD every TTS, [place] [employer] due to abnormal EKG, in the ED she was found to have elevated tropnin and was started on heparin drip, planned for LHC per cardiology, renal consulted for ESRD management. She was admitted for further evaluation and management. Discharge diagnosis and management: ABNORMAL ECG changes due to small vessel CAD - suggesting ischemia in the absence of chest pain or shortness of breath. - left heart Cath revealed Ostial diagonal disease and occluded OM1 that reconstitutes distally via left to left collaterals, normal LVEF and normal , recommended medical therapy for now ESRD due to polycystic kidney disease - HD per renal Anemia of chronic disease - monitor H/H Calciphylaxis b/l LE - Dr candelaria consulted, cleared by cardiology for possible surgical intervention, will f/u outpt with Dr. Candelaria Disposition: [id number]/TX-[id number] HOME UNDER HOME [facility] Time spent for discharge: 34 minutes Core Measure Documentation - Palliative Care Palliative Care/ Comfort Measures: Not Applicable - Core Measures Any of the following diagnoses?: history only Exam - Physical Exam Narrative exam: - General physical appearance Positive: well developed, well nourished, no distress - Eyes Positive: PERRL, normal occular movement - ENT Positive: normal pinna, normal nares, normal mucosa, no hearing loss, no congestion - Neck Positive: no masses, no bruits, trachea midline, no venous distension - Respiratory Positive: normal expansion, normal respiratory effort, clear to auscultation - Cardiovascular Rhythm: regular Heart Sounds: Present: S1 & S2. Absent: rub, click - Extremities Extremities: no ischemia, pulses symmetrical, No edema - Breasts Breasts: deferred - Abdomen Abdomen: Present: soft, bowel sounds normal. Absent: tender, distended Hernia: none - Genitourinary Female Genitourinary: deferred - Integumentary other (There are extensive bilateral ulcerations of her legs. These consist of necrotic skin/eschar without associated signs of infection.) - Neurologic Neurologic: alert and oriented to time, place and person, motor strength and sensation are grossly intact - Musculoskeletal normal gait, normal posture - Psychiatric Psychiatric: appropriate mood/affect, intact judgment & insight - Constitutional Vitals: Temp Pulse Resp BP Pulse Ox 98.6 F 82 20 151/72 98 12/06/18 09:33 12/06/18 09:33 12/06/18 14:53 12/06/18 10:38 12/06/18 09:59 Plan Activity: advance as tolerated, fall precautions Weight Bearing Status: Non-Weight Bearing Diet: low fat, low salt Wound: per wound nurse instructions Additional Instructions: f/u outpt with Tay Hansen Follow up with: PRIMARY CARE, [Primary Care Provider] - 3-5 Days Prescriptions: AtorvaSTATin [Lipitor] 40 mg PO QHS #30 tablet Aspirin EC [Aspirin Enteric Coated TAB] 81 mg PO QDAY #30 tablet ISOSORBIDE MONOnitrate [Imdur ER] 30 mg PO QDAY #30 tablet Labetalol [Normodyne TAB] 200 mg PO BID #60 tablet NIFEdipine XL [Procardia Xl] 60 mg PO Q12HR #60 tablet
== END 2018-12-06 18:36 | disposition home health service (06) | DRG 280 ==
LOC: ED 12:28 → 4A 15:14
PROVIDERS: ADMIT Internal Medicine; ATTEND Internal Medicine
PROC: 4A023N7 Measurement of Cardiac Sampling and Pressure, Left Heart, Percutaneous Approach (ICD-10-PCS; principal; 2018-12-04)
PROC: B2111ZZ Fluoroscopy of Multiple Coronary Arteries using Low Osmolar Contrast (ICD-10-PCS; 2018-12-04)
PROC: 3E0234Z Introduction of Serum, Toxoid and Vaccine into Muscle, Percutaneous Approach (ICD-10-PCS; 2018-12-04)
PROC: 5A1D70Z Performance of Urinary Filtration, Intermittent, Less than 6 Hours Per Day (ICD-10-PCS; 2018-12-05)
DX: I21.4 Non-ST elevation (NSTEMI) myocardial infarction (principal); N18.6 End stage renal disease; I50.33 Acute on chronic diastolic (congestive) heart failure; L97.929 Non-pressure chronic ulcer of unspecified part of left lower leg with unspecified severity; I25.10 Atherosclerotic heart disease of native coronary artery without angina pectoris; I15.1 Hypertension secondary to other renal disorders; I11.0 Hypertensive heart disease with heart failure; I25.82 Chronic total occlusion of coronary artery; E11.22 Type 2 diabetes mellitus with diabetic chronic kidney disease; E83.59 Other disorders of calcium metabolism; I87.8 Other specified disorders of veins; D63.1 Anemia in chronic kidney disease; Z99.2 Dependence on renal dialysis; Z91.19 Patient's noncompliance with other medical treatment and regimen; Z79.899 Other long term (current) drug therapy; Z87.891 Personal history of nicotine dependence; Z23 Encounter for immunization; Z79.84 Long term (current) use of oral hypoglycemic drugs
CPT/HCPCS: 36415; 71046; 80048; 80053; 80061; 82728; 82962; 83550; 83735; 83880; 84100; 84484; 84703; 85014; 85018; 85025; 85049; 85520; 85610; 85730; 90686; 90732; 93005; 93010; 93458; 96374; G0378; A9270-GY; C1760; J1644; J2250; J2270; J3010; J7030; J7040; Q9967

== ENCOUNTER 2018-12-18 09:03 | Outpatient (CLI) | payer BC ==
[2018-12-18] MEDS ORDERED: XYLOCAINE TOPICAL 4% TP ONE (09:16)
== END 2018-12-18 09:04 | disposition home or self-care (01) ==
LOC: WOUND 09:03
PROVIDERS: ATTEND Surgery
DX: E11.622 Type 2 diabetes mellitus with other skin ulcer (principal); L97.212 Non-pressure chronic ulcer of right calf with fat layer exposed; L97.222 Non-pressure chronic ulcer of left calf with fat layer exposed; E11.22 Type 2 diabetes mellitus with diabetic chronic kidney disease; I12.0 Hypertensive chronic kidney disease with stage 5 chronic kidney disease or end stage renal disease; N18.6 End stage renal disease; E83.59 Other disorders of calcium metabolism; E28.2 Polycystic ovarian syndrome; Q61.3 Polycystic kidney, unspecified; Z87.891 Personal history of nicotine dependence
CPT/HCPCS: 99214; G0463

== ENCOUNTER 2019-01-10 13:06 | Outpatient (CLI) | payer BC ==
[2019-01-10] MEDS ORDERED: XYLOCAINE TOPICAL 4% TP ONE (13:37)
== END 2019-01-10 13:07 | disposition home or self-care (01) ==
LOC: WOUND 13:06
PROVIDERS: ATTEND Surgery
DX: E11.622 Type 2 diabetes mellitus with other skin ulcer (principal); L97.212 Non-pressure chronic ulcer of right calf with fat layer exposed; L97.222 Non-pressure chronic ulcer of left calf with fat layer exposed; E83.59 Other disorders of calcium metabolism; E11.22 Type 2 diabetes mellitus with diabetic chronic kidney disease; I12.0 Hypertensive chronic kidney disease with stage 5 chronic kidney disease or end stage renal disease; N18.6 End stage renal disease; E28.2 Polycystic ovarian syndrome; Z87.891 Personal history of nicotine dependence

== ENCOUNTER 2019-01-14 11:24 | Outpatient (CLI) | payer BC ==
[2019-01-14] MEDS ORDERED: XYLOCAINE TOPICAL 4% TP ONE ×2 (11:42→11:50)
== END 2019-01-14 11:25 | disposition home or self-care (01) ==
LOC: WOUND 11:24
PROVIDERS: ATTEND Surgery
DX: E11.622 Type 2 diabetes mellitus with other skin ulcer (principal); L97.212 Non-pressure chronic ulcer of right calf with fat layer exposed; L97.222 Non-pressure chronic ulcer of left calf with fat layer exposed; E83.59 Other disorders of calcium metabolism; E11.22 Type 2 diabetes mellitus with diabetic chronic kidney disease; I12.0 Hypertensive chronic kidney disease with stage 5 chronic kidney disease or end stage renal disease; N18.6 End stage renal disease; E28.2 Polycystic ovarian syndrome; Z87.891 Personal history of nicotine dependence
CPT/HCPCS: 99215; G0463

== ENCOUNTER 2019-01-21 09:51 | Outpatient (CLI) | payer BC ==
[2019-01-21] MEDS ORDERED: XYLOCAINE TOPICAL 4% TP ONE (10:32)
== END 2019-01-21 09:52 | disposition home or self-care (01) ==
LOC: WOUND 09:51
PROVIDERS: ATTEND Surgery
DX: E11.622 Type 2 diabetes mellitus with other skin ulcer (principal); L97.212 Non-pressure chronic ulcer of right calf with fat layer exposed; L97.222 Non-pressure chronic ulcer of left calf with fat layer exposed; E83.59 Other disorders of calcium metabolism; E11.22 Type 2 diabetes mellitus with diabetic chronic kidney disease; I12.0 Hypertensive chronic kidney disease with stage 5 chronic kidney disease or end stage renal disease; N18.6 End stage renal disease; E28.2 Polycystic ovarian syndrome; Z87.891 Personal history of nicotine dependence

== ENCOUNTER 2019-01-27 09:33 | Outpatient (CLI) | payer BC | END 2019-01-27 09:34 | disposition home or self-care (01) | LOC: WOUND 09:33 | PROVIDERS: ATTEND Surgery | DX: E11.622 Type 2 diabetes mellitus with other skin ulcer (principal); L97.212 Non-pressure chronic ulcer of right calf with fat layer exposed; L97.222 Non-pressure chronic ulcer of left calf with fat layer exposed; E11.22 Type 2 diabetes mellitus with diabetic chronic kidney disease; I12.0 Hypertensive chronic kidney disease with stage 5 chronic kidney disease or end stage renal disease; N18.6 End stage renal disease; I70.242 Atherosclerosis of native arteries of left leg with ulceration of calf; I70.232 Atherosclerosis of native arteries of right leg with ulceration of calf; E83.59 Other disorders of calcium metabolism; Z87.891 Personal history of nicotine dependence | CPT/HCPCS: 82962; G0277; 99183 ==

== ENCOUNTER 2019-01-28 09:44 | Outpatient (CLI) | payer BC | END 2019-01-28 09:45 | disposition home or self-care (01) | LOC: WOUND 09:44 | PROVIDERS: ATTEND Surgery | DX: E11.622 Type 2 diabetes mellitus with other skin ulcer (principal); L97.212 Non-pressure chronic ulcer of right calf with fat layer exposed; L97.222 Non-pressure chronic ulcer of left calf with fat layer exposed; I70.242 Atherosclerosis of native arteries of left leg with ulceration of calf; I70.232 Atherosclerosis of native arteries of right leg with ulceration of calf; E11.22 Type 2 diabetes mellitus with diabetic chronic kidney disease; N18.6 End stage renal disease; I12.0 Hypertensive chronic kidney disease with stage 5 chronic kidney disease or end stage renal disease; E83.59 Other disorders of calcium metabolism; Z87.891 Personal history of nicotine dependence | CPT/HCPCS: 82962; G0277; 99183 ==

== ENCOUNTER 2019-01-29 09:00 | Outpatient (CLI) | payer BC ==
[2019-01-29] MEDS ORDERED: XYLOCAINE TOPICAL 4% TP ONE (09:14)
[2019-01-29] MEDS ORDERED: AD OINTMENT TP SCH (10:00)
== END 2019-01-29 09:01 | disposition home or self-care (01) ==
LOC: WOUND 09:00
PROVIDERS: ATTEND Surgery
DX: E11.622 Type 2 diabetes mellitus with other skin ulcer (principal); L97.212 Non-pressure chronic ulcer of right calf with fat layer exposed; L97.222 Non-pressure chronic ulcer of left calf with fat layer exposed; E11.22 Type 2 diabetes mellitus with diabetic chronic kidney disease; N18.6 End stage renal disease; I12.0 Hypertensive chronic kidney disease with stage 5 chronic kidney disease or end stage renal disease; E83.59 Other disorders of calcium metabolism; Z87.891 Personal history of nicotine dependence
CPT/HCPCS: 82962; A6250

== ENCOUNTER 2019-01-30 10:38 | Outpatient (CLI) | payer BC | END 2019-01-30 10:39 | disposition home or self-care (01) | LOC: WOUND 10:38 | PROVIDERS: ATTEND Surgery | DX: E11.622 Type 2 diabetes mellitus with other skin ulcer (principal); L97.212 Non-pressure chronic ulcer of right calf with fat layer exposed; L97.222 Non-pressure chronic ulcer of left calf with fat layer exposed; E11.22 Type 2 diabetes mellitus with diabetic chronic kidney disease; N18.6 End stage renal disease; I12.0 Hypertensive chronic kidney disease with stage 5 chronic kidney disease or end stage renal disease; E83.59 Other disorders of calcium metabolism; F12.90 Cannabis use, unspecified, uncomplicated; Z87.891 Personal history of nicotine dependence | CPT/HCPCS: 82962; G0277; 99183 ==

== ENCOUNTER 2019-01-31 09:59 | Outpatient (CLI) | payer BC | END 2019-01-31 10:00 | disposition home or self-care (01) | LOC: WOUND 09:59 | PROVIDERS: ATTEND Surgery | DX: E11.622 Type 2 diabetes mellitus with other skin ulcer (principal); L97.212 Non-pressure chronic ulcer of right calf with fat layer exposed; L97.222 Non-pressure chronic ulcer of left calf with fat layer exposed; E11.22 Type 2 diabetes mellitus with diabetic chronic kidney disease; I12.0 Hypertensive chronic kidney disease with stage 5 chronic kidney disease or end stage renal disease; N18.6 End stage renal disease; I70.242 Atherosclerosis of native arteries of left leg with ulceration of calf; I70.233 Atherosclerosis of native arteries of right leg with ulceration of ankle; E83.59 Other disorders of calcium metabolism; Z87.891 Personal history of nicotine dependence | CPT/HCPCS: 82962; G0277; 99183 ==

== ENCOUNTER 2019-02-03 09:43 | Outpatient (CLI) | payer BC | END 2019-02-03 09:44 | disposition home or self-care (01) | LOC: WOUND 09:43 | PROVIDERS: ATTEND Surgery | DX: E11.622 Type 2 diabetes mellitus with other skin ulcer (principal); L97.212 Non-pressure chronic ulcer of right calf with fat layer exposed; L97.222 Non-pressure chronic ulcer of left calf with fat layer exposed; E11.22 Type 2 diabetes mellitus with diabetic chronic kidney disease; N18.6 End stage renal disease; I70.242 Atherosclerosis of native arteries of left leg with ulceration of calf; I70.232 Atherosclerosis of native arteries of right leg with ulceration of calf; I12.0 Hypertensive chronic kidney disease with stage 5 chronic kidney disease or end stage renal disease; E83.59 Other disorders of calcium metabolism; Z87.891 Personal history of nicotine dependence | CPT/HCPCS: 82962; 99183; G0277 ==

== ENCOUNTER 2019-02-04 09:49 | Outpatient (CLI) | payer BC | END 2019-02-04 09:50 | disposition home or self-care (01) | LOC: WOUND 09:49 | PROVIDERS: ATTEND Surgery | DX: E11.622 Type 2 diabetes mellitus with other skin ulcer (principal); L97.212 Non-pressure chronic ulcer of right calf with fat layer exposed; L97.222 Non-pressure chronic ulcer of left calf with fat layer exposed; I70.242 Atherosclerosis of native arteries of left leg with ulceration of calf; I70.232 Atherosclerosis of native arteries of right leg with ulceration of calf; E11.22 Type 2 diabetes mellitus with diabetic chronic kidney disease; I12.0 Hypertensive chronic kidney disease with stage 5 chronic kidney disease or end stage renal disease; N18.6 End stage renal disease; E83.59 Other disorders of calcium metabolism; Z87.891 Personal history of nicotine dependence; F12.90 Cannabis use, unspecified, uncomplicated | CPT/HCPCS: 82962; G0277; 99183 ==

== ENCOUNTER 2019-02-05 09:50 | Outpatient (CLI) | payer BC ==
[2019-02-05] MEDS ORDERED: XYLOCAINE TOPICAL 4% TP ONE ×2 (10:30→13:00)
[2019-02-05] MEDS ORDERED: AD OINTMENT TP ONE (13:00)
[2019-02-06] MEDS ORDERED: AD OINTMENT TP SCH (10:30)
== END 2019-02-05 09:51 | disposition home or self-care (01) ==
LOC: WOUND 09:50
PROVIDERS: ATTEND Surgery
DX: E11.622 Type 2 diabetes mellitus with other skin ulcer (principal); I70.232 Atherosclerosis of native arteries of right leg with ulceration of calf; L97.212 Non-pressure chronic ulcer of right calf with fat layer exposed; I70.242 Atherosclerosis of native arteries of left leg with ulceration of calf; L97.222 Non-pressure chronic ulcer of left calf with fat layer exposed; E11.22 Type 2 diabetes mellitus with diabetic chronic kidney disease; I12.0 Hypertensive chronic kidney disease with stage 5 chronic kidney disease or end stage renal disease; N18.6 End stage renal disease; E83.59 Other disorders of calcium metabolism; F12.90 Cannabis use, unspecified, uncomplicated; Z87.891 Personal history of nicotine dependence
CPT/HCPCS: 82962; G0277; G0463; 99183; 99215; A6250

== ENCOUNTER 2019-02-06 10:08 | Outpatient (CLI) | payer BC | END 2019-02-06 10:09 | disposition home or self-care (01) | LOC: WOUND 10:08 | PROVIDERS: ATTEND Surgery | DX: I70.232 Atherosclerosis of native arteries of right leg with ulceration of calf (principal); E11.622 Type 2 diabetes mellitus with other skin ulcer; L97.212 Non-pressure chronic ulcer of right calf with fat layer exposed; I70.242 Atherosclerosis of native arteries of left leg with ulceration of calf; L97.222 Non-pressure chronic ulcer of left calf with fat layer exposed; E11.22 Type 2 diabetes mellitus with diabetic chronic kidney disease; I12.0 Hypertensive chronic kidney disease with stage 5 chronic kidney disease or end stage renal disease; N18.6 End stage renal disease; F12.90 Cannabis use, unspecified, uncomplicated; Z87.891 Personal history of nicotine dependence | CPT/HCPCS: 82962; G0277; 99183 ==

== ENCOUNTER 2019-02-07 09:54 | Outpatient (CLI) | payer BC | END 2019-02-07 09:55 | disposition home or self-care (01) | LOC: WOUND 09:54 | PROVIDERS: ATTEND Surgery | DX: E11.622 Type 2 diabetes mellitus with other skin ulcer (principal); L97.212 Non-pressure chronic ulcer of right calf with fat layer exposed; L97.222 Non-pressure chronic ulcer of left calf with fat layer exposed; I70.242 Atherosclerosis of native arteries of left leg with ulceration of calf; I70.232 Atherosclerosis of native arteries of right leg with ulceration of calf; E83.59 Other disorders of calcium metabolism; E11.22 Type 2 diabetes mellitus with diabetic chronic kidney disease; I12.0 Hypertensive chronic kidney disease with stage 5 chronic kidney disease or end stage renal disease; N18.6 End stage renal disease; F12.90 Cannabis use, unspecified, uncomplicated; Z87.891 Personal history of nicotine dependence | CPT/HCPCS: 82962; G0277; 99183 ==

== ENCOUNTER 2019-02-10 09:52 | Outpatient (CLI) | payer BC | END 2019-02-10 09:53 | disposition home or self-care (01) | LOC: WOUND 09:52 | PROVIDERS: ATTEND Surgery | DX: E11.622 Type 2 diabetes mellitus with other skin ulcer (principal); L97.212 Non-pressure chronic ulcer of right calf with fat layer exposed; L97.222 Non-pressure chronic ulcer of left calf with fat layer exposed; I70.242 Atherosclerosis of native arteries of left leg with ulceration of calf; I70.232 Atherosclerosis of native arteries of right leg with ulceration of calf; E83.59 Other disorders of calcium metabolism; E11.22 Type 2 diabetes mellitus with diabetic chronic kidney disease; I12.0 Hypertensive chronic kidney disease with stage 5 chronic kidney disease or end stage renal disease; N18.6 End stage renal disease; F12.90 Cannabis use, unspecified, uncomplicated; Z87.891 Personal history of nicotine dependence | CPT/HCPCS: 82962; G0277; 99183 ==

== ENCOUNTER 2019-02-12 09:57 | Outpatient (CLI) | payer BC ==
[2019-02-12] MEDS ORDERED: XYLOCAINE TOPICAL 4% TP ONE ×2 (12:45→13:00)
== END 2019-02-12 09:58 | disposition home or self-care (01) ==
LOC: WOUND 09:57
PROVIDERS: ATTEND Surgery
DX: E11.622 Type 2 diabetes mellitus with other skin ulcer (principal); L97.212 Non-pressure chronic ulcer of right calf with fat layer exposed; L97.222 Non-pressure chronic ulcer of left calf with fat layer exposed; I70.242 Atherosclerosis of native arteries of left leg with ulceration of calf; I70.232 Atherosclerosis of native arteries of right leg with ulceration of calf; E83.59 Other disorders of calcium metabolism; E11.22 Type 2 diabetes mellitus with diabetic chronic kidney disease; I12.0 Hypertensive chronic kidney disease with stage 5 chronic kidney disease or end stage renal disease; N18.6 End stage renal disease; F12.90 Cannabis use, unspecified, uncomplicated; Z87.891 Personal history of nicotine dependence
CPT/HCPCS: 11042; 11045; 82962; G0277; 99183

== ENCOUNTER 2019-02-13 10:18 | Outpatient (CLI) | payer BC | END 2019-02-13 10:19 | disposition home or self-care (01) | LOC: WOUND 10:18 | PROVIDERS: ATTEND Surgery | DX: E11.622 Type 2 diabetes mellitus with other skin ulcer (principal); L97.212 Non-pressure chronic ulcer of right calf with fat layer exposed; L97.222 Non-pressure chronic ulcer of left calf with fat layer exposed; I70.242 Atherosclerosis of native arteries of left leg with ulceration of calf; I70.232 Atherosclerosis of native arteries of right leg with ulceration of calf; E11.22 Type 2 diabetes mellitus with diabetic chronic kidney disease; N18.6 End stage renal disease; I12.0 Hypertensive chronic kidney disease with stage 5 chronic kidney disease or end stage renal disease; E83.59 Other disorders of calcium metabolism; F12.90 Cannabis use, unspecified, uncomplicated; Z87.891 Personal history of nicotine dependence | CPT/HCPCS: 82962; G0277; 99183 ==

== ENCOUNTER 2019-02-17 09:59 | Outpatient (CLI) | payer BC | END 2019-02-17 10:00 | disposition home or self-care (01) | LOC: WOUND 09:59 | PROVIDERS: ATTEND Surgery | DX: E11.622 Type 2 diabetes mellitus with other skin ulcer (principal); L97.212 Non-pressure chronic ulcer of right calf with fat layer exposed; L97.222 Non-pressure chronic ulcer of left calf with fat layer exposed; I70.242 Atherosclerosis of native arteries of left leg with ulceration of calf; I70.232 Atherosclerosis of native arteries of right leg with ulceration of calf; E11.22 Type 2 diabetes mellitus with diabetic chronic kidney disease; N18.6 End stage renal disease; I12.0 Hypertensive chronic kidney disease with stage 5 chronic kidney disease or end stage renal disease; E83.59 Other disorders of calcium metabolism; F12.90 Cannabis use, unspecified, uncomplicated; Z87.891 Personal history of nicotine dependence | CPT/HCPCS: 82962; G0277; 99183 ==

== ENCOUNTER 2019-02-28 09:48 | Outpatient (CLI) | payer BC ==
[2019-02-28] MEDS ORDERED: XYLOCAINE TOPICAL 4% TP ONE (10:10)
== END 2019-02-28 09:49 | disposition home or self-care (01) ==
LOC: WOUND 09:48
PROVIDERS: ATTEND Surgery
DX: E11.622 Type 2 diabetes mellitus with other skin ulcer (principal); L97.212 Non-pressure chronic ulcer of right calf with fat layer exposed; L97.222 Non-pressure chronic ulcer of left calf with fat layer exposed; E11.22 Type 2 diabetes mellitus with diabetic chronic kidney disease; N18.6 End stage renal disease; I12.0 Hypertensive chronic kidney disease with stage 5 chronic kidney disease or end stage renal disease; E28.2 Polycystic ovarian syndrome; E83.59 Other disorders of calcium metabolism; F12.90 Cannabis use, unspecified, uncomplicated; Z87.891 Personal history of nicotine dependence

== ENCOUNTER 2019-03-11 10:47 | Outpatient (CLI) | payer BC | END 2019-03-11 10:48 | disposition home or self-care (01) | LOC: WOUND 10:47 | PROVIDERS: ATTEND Surgery | DX: E11.622 Type 2 diabetes mellitus with other skin ulcer (principal); L97.212 Non-pressure chronic ulcer of right calf with fat layer exposed; L97.222 Non-pressure chronic ulcer of left calf with fat layer exposed; I70.242 Atherosclerosis of native arteries of left leg with ulceration of calf; I70.232 Atherosclerosis of native arteries of right leg with ulceration of calf; E11.22 Type 2 diabetes mellitus with diabetic chronic kidney disease; N18.6 End stage renal disease; I12.0 Hypertensive chronic kidney disease with stage 5 chronic kidney disease or end stage renal disease; E83.59 Other disorders of calcium metabolism; Z87.891 Personal history of nicotine dependence | CPT/HCPCS: 82962; G0277; 99183 ==

== ENCOUNTER 2019-03-13 10:58 | Outpatient (CLI) | payer BC ==
[2019-03-13] MEDS ORDERED: XYLOCAINE TOPICAL 4% TP ONE (14:00)
== END 2019-03-13 10:59 | disposition home or self-care (01) ==
LOC: WOUND 10:58
PROVIDERS: ATTEND Surgery
DX: E11.622 Type 2 diabetes mellitus with other skin ulcer (principal); L97.212 Non-pressure chronic ulcer of right calf with fat layer exposed; L97.222 Non-pressure chronic ulcer of left calf with fat layer exposed; I70.242 Atherosclerosis of native arteries of left leg with ulceration of calf; I70.232 Atherosclerosis of native arteries of right leg with ulceration of calf; E11.22 Type 2 diabetes mellitus with diabetic chronic kidney disease; N18.6 End stage renal disease; I12.0 Hypertensive chronic kidney disease with stage 5 chronic kidney disease or end stage renal disease; E83.59 Other disorders of calcium metabolism; Z87.891 Personal history of nicotine dependence
CPT/HCPCS: 11042; 11045; G0277; 82962; 99183

== ENCOUNTER 2019-03-20 10:27 | Outpatient (CLI) | payer BC ==
[2019-03-20] MEDS ORDERED: XYLOCAINE TOPICAL 4% TP ONE (11:00)
== END 2019-03-20 10:28 | disposition home or self-care (01) ==
LOC: WOUND 10:27
PROVIDERS: ATTEND Surgery
DX: E11.622 Type 2 diabetes mellitus with other skin ulcer (principal); L97.212 Non-pressure chronic ulcer of right calf with fat layer exposed; L97.222 Non-pressure chronic ulcer of left calf with fat layer exposed; I70.232 Atherosclerosis of native arteries of right leg with ulceration of calf; I70.242 Atherosclerosis of native arteries of left leg with ulceration of calf; E11.22 Type 2 diabetes mellitus with diabetic chronic kidney disease; N18.6 End stage renal disease; E83.59 Other disorders of calcium metabolism; I12.0 Hypertensive chronic kidney disease with stage 5 chronic kidney disease or end stage renal disease; E28.2 Polycystic ovarian syndrome; Z87.891 Personal history of nicotine dependence
CPT/HCPCS: 11042; 11045; 82962; G0277; 99183

== ENCOUNTER 2019-03-24 11:35 | Outpatient (CLI) | payer BC | END 2019-03-24 11:36 | disposition home or self-care (01) | LOC: WOUND 11:35 | PROVIDERS: ATTEND Surgery | DX: E11.622 Type 2 diabetes mellitus with other skin ulcer (principal); L97.212 Non-pressure chronic ulcer of right calf with fat layer exposed; L97.222 Non-pressure chronic ulcer of left calf with fat layer exposed; I70.232 Atherosclerosis of native arteries of right leg with ulceration of calf; I70.242 Atherosclerosis of native arteries of left leg with ulceration of calf; E11.22 Type 2 diabetes mellitus with diabetic chronic kidney disease; N18.6 End stage renal disease; E83.59 Other disorders of calcium metabolism; I12.0 Hypertensive chronic kidney disease with stage 5 chronic kidney disease or end stage renal disease; E28.2 Polycystic ovarian syndrome; Z87.891 Personal history of nicotine dependence | CPT/HCPCS: 82962; 99183; G0277 ==

== ENCOUNTER 2019-03-25 10:25 | Outpatient (CLI) | payer BC | END 2019-03-25 10:26 | disposition home or self-care (01) | LOC: WOUND 10:25 | PROVIDERS: ATTEND Surgery | DX: E11.622 Type 2 diabetes mellitus with other skin ulcer (principal); L97.212 Non-pressure chronic ulcer of right calf with fat layer exposed; L97.222 Non-pressure chronic ulcer of left calf with fat layer exposed; I70.232 Atherosclerosis of native arteries of right leg with ulceration of calf; I70.242 Atherosclerosis of native arteries of left leg with ulceration of calf; E11.22 Type 2 diabetes mellitus with diabetic chronic kidney disease; N18.6 End stage renal disease; E83.59 Other disorders of calcium metabolism; I12.0 Hypertensive chronic kidney disease with stage 5 chronic kidney disease or end stage renal disease; E28.2 Polycystic ovarian syndrome; Z87.891 Personal history of nicotine dependence | CPT/HCPCS: 82962; 99183; G0277 ==

== ENCOUNTER 2019-03-26 13:30 | Outpatient (CLI) | payer BC | END 2019-03-26 13:31 | disposition home or self-care (01) | LOC: WOUND 13:30 | PROVIDERS: ATTEND Surgery | DX: E11.622 Type 2 diabetes mellitus with other skin ulcer (principal); L97.212 Non-pressure chronic ulcer of right calf with fat layer exposed; L97.222 Non-pressure chronic ulcer of left calf with fat layer exposed; I70.232 Atherosclerosis of native arteries of right leg with ulceration of calf; I70.242 Atherosclerosis of native arteries of left leg with ulceration of calf; E11.22 Type 2 diabetes mellitus with diabetic chronic kidney disease; N18.6 End stage renal disease; E83.59 Other disorders of calcium metabolism; I12.0 Hypertensive chronic kidney disease with stage 5 chronic kidney disease or end stage renal disease; E28.2 Polycystic ovarian syndrome; Z87.891 Personal history of nicotine dependence | CPT/HCPCS: 82962; 99183; G0277 ==

== ENCOUNTER 2019-03-28 12:56 | Outpatient (CLI) | payer BC | END 2019-03-28 12:57 | disposition home or self-care (01) | LOC: WOUND 12:56 | PROVIDERS: ATTEND Surgery | DX: E11.622 Type 2 diabetes mellitus with other skin ulcer (principal); L97.212 Non-pressure chronic ulcer of right calf with fat layer exposed; L97.222 Non-pressure chronic ulcer of left calf with fat layer exposed; I70.232 Atherosclerosis of native arteries of right leg with ulceration of calf; I70.242 Atherosclerosis of native arteries of left leg with ulceration of calf; E11.22 Type 2 diabetes mellitus with diabetic chronic kidney disease; I12.0 Hypertensive chronic kidney disease with stage 5 chronic kidney disease or end stage renal disease; N18.6 End stage renal disease; E83.59 Other disorders of calcium metabolism; E28.2 Polycystic ovarian syndrome | CPT/HCPCS: 82962; G0277; 99183 ==

== ENCOUNTER 2019-03-31 11:23 | Outpatient (CLI) | payer BC | END 2019-03-31 11:24 | disposition home or self-care (01) | LOC: WOUND 11:23 | PROVIDERS: ATTEND Surgery | DX: E11.622 Type 2 diabetes mellitus with other skin ulcer (principal); I70.232 Atherosclerosis of native arteries of right leg with ulceration of calf; I70.242 Atherosclerosis of native arteries of left leg with ulceration of calf; L97.212 Non-pressure chronic ulcer of right calf with fat layer exposed; L97.222 Non-pressure chronic ulcer of left calf with fat layer exposed; E11.22 Type 2 diabetes mellitus with diabetic chronic kidney disease; N18.6 End stage renal disease; E83.59 Other disorders of calcium metabolism; I12.0 Hypertensive chronic kidney disease with stage 5 chronic kidney disease or end stage renal disease; E28.2 Polycystic ovarian syndrome; Z87.891 Personal history of nicotine dependence | CPT/HCPCS: 82962; G0277; 99183 ==

== ENCOUNTER 2019-04-02 09:19 | Outpatient (CLI) | payer BC ==
[2019-04-02] MEDS ORDERED: XYLOCAINE TOPICAL 4% TP ONE (12:14)
== END 2019-04-02 09:20 | disposition home or self-care (01) ==
LOC: WOUND 09:19
PROVIDERS: ATTEND Surgery
DX: E11.622 Type 2 diabetes mellitus with other skin ulcer (principal); I70.232 Atherosclerosis of native arteries of right leg with ulceration of calf; I70.242 Atherosclerosis of native arteries of left leg with ulceration of calf; L97.212 Non-pressure chronic ulcer of right calf with fat layer exposed; L97.222 Non-pressure chronic ulcer of left calf with fat layer exposed; E11.22 Type 2 diabetes mellitus with diabetic chronic kidney disease; N18.6 End stage renal disease; E83.59 Other disorders of calcium metabolism; I12.0 Hypertensive chronic kidney disease with stage 5 chronic kidney disease or end stage renal disease; E28.2 Polycystic ovarian syndrome; Z87.891 Personal history of nicotine dependence
CPT/HCPCS: 11042; 82962; G0277; 99183

== ENCOUNTER 2019-04-09 14:14 | Outpatient (CLI) | payer BC | END 2019-04-09 14:15 | disposition home or self-care (01) | LOC: WOUND 14:14 | PROVIDERS: ATTEND Surgery | DX: E11.622 Type 2 diabetes mellitus with other skin ulcer (principal); L97.212 Non-pressure chronic ulcer of right calf with fat layer exposed; L97.222 Non-pressure chronic ulcer of left calf with fat layer exposed; I70.232 Atherosclerosis of native arteries of right leg with ulceration of calf; I70.242 Atherosclerosis of native arteries of left leg with ulceration of calf; E11.22 Type 2 diabetes mellitus with diabetic chronic kidney disease; I12.0 Hypertensive chronic kidney disease with stage 5 chronic kidney disease or end stage renal disease; N18.6 End stage renal disease; E83.59 Other disorders of calcium metabolism; E28.2 Polycystic ovarian syndrome; F12.90 Cannabis use, unspecified, uncomplicated; Z87.891 Personal history of nicotine dependence | CPT/HCPCS: 82962; 99183; G0277 ==

== ENCOUNTER 2019-04-11 12:58 | Outpatient (CLI) | payer BC ==
[2019-04-11] MEDS ORDERED: XYLOCAINE TOPICAL 4% TP ONE ×2 (13:23→14:00)
[2019-04-12] MEDS ORDERED: AD OINTMENT TP SCH (10:00)
== END 2019-04-11 12:59 | disposition home or self-care (01) ==
LOC: WOUND 12:58
PROVIDERS: ATTEND Surgery
DX: E11.622 Type 2 diabetes mellitus with other skin ulcer (principal); L97.212 Non-pressure chronic ulcer of right calf with fat layer exposed; L97.222 Non-pressure chronic ulcer of left calf with fat layer exposed; I70.232 Atherosclerosis of native arteries of right leg with ulceration of calf; I70.242 Atherosclerosis of native arteries of left leg with ulceration of calf; E11.22 Type 2 diabetes mellitus with diabetic chronic kidney disease; I12.0 Hypertensive chronic kidney disease with stage 5 chronic kidney disease or end stage renal disease; N18.6 End stage renal disease; E83.59 Other disorders of calcium metabolism; E28.2 Polycystic ovarian syndrome; F12.90 Cannabis use, unspecified, uncomplicated; Z87.891 Personal history of nicotine dependence

== ENCOUNTER 2019-04-18 10:52 | Outpatient (CLI) | payer BC ==
[2019-04-18] MEDS ORDERED: XYLOCAINE TOPICAL 4% TP ONE (10:59)
[2019-04-18] MEDS ORDERED: SILVER NITRATE TP ONE (11:00)
[2019-04-18] MEDS ORDERED: AD OINTMENT TP PRN (11:04)
== END 2019-04-18 10:53 | disposition home or self-care (01) ==
LOC: WOUND 10:52
PROVIDERS: ATTEND Surgery
DX: E11.622 Type 2 diabetes mellitus with other skin ulcer (principal); L97.212 Non-pressure chronic ulcer of right calf with fat layer exposed; L97.222 Non-pressure chronic ulcer of left calf with fat layer exposed; E83.59 Other disorders of calcium metabolism; E11.22 Type 2 diabetes mellitus with diabetic chronic kidney disease; N18.6 End stage renal disease; I12.0 Hypertensive chronic kidney disease with stage 5 chronic kidney disease or end stage renal disease; E28.2 Polycystic ovarian syndrome; F12.90 Cannabis use, unspecified, uncomplicated; Z87.891 Personal history of nicotine dependence
CPT/HCPCS: A6250

== ENCOUNTER 2019-04-25 13:05 | Outpatient (CLI) | payer BC ==
[2019-04-25] MEDS ORDERED: XYLOCAINE TOPICAL 4% TP ONE (13:42)
== END 2019-04-25 13:06 | disposition home or self-care (01) ==
LOC: WOUND 13:05
PROVIDERS: ATTEND Surgery
DX: E11.622 Type 2 diabetes mellitus with other skin ulcer (principal); L97.212 Non-pressure chronic ulcer of right calf with fat layer exposed; L97.222 Non-pressure chronic ulcer of left calf with fat layer exposed; E83.59 Other disorders of calcium metabolism; E11.22 Type 2 diabetes mellitus with diabetic chronic kidney disease; N18.6 End stage renal disease; I12.0 Hypertensive chronic kidney disease with stage 5 chronic kidney disease or end stage renal disease; E28.2 Polycystic ovarian syndrome; F12.90 Cannabis use, unspecified, uncomplicated; Z87.891 Personal history of nicotine dependence

== ENCOUNTER 2019-05-02 09:43 | Outpatient (CLI) | payer BC ==
[2019-05-02] MEDS ORDERED: AD OINTMENT TP PRN (09:55)
[2019-05-02] MEDS ORDERED: SILVER NITRATE TP ONE (09:55)
[2019-05-02] MEDS ORDERED: XYLOCAINE TOPICAL 4% TP ONE (09:55)
== END 2019-05-02 09:44 | disposition home or self-care (01) ==
LOC: WOUND 09:43
PROVIDERS: ATTEND Surgery
DX: E11.622 Type 2 diabetes mellitus with other skin ulcer (principal); L97.212 Non-pressure chronic ulcer of right calf with fat layer exposed; L97.222 Non-pressure chronic ulcer of left calf with fat layer exposed; E83.59 Other disorders of calcium metabolism; E11.22 Type 2 diabetes mellitus with diabetic chronic kidney disease; I12.0 Hypertensive chronic kidney disease with stage 5 chronic kidney disease or end stage renal disease; N18.6 End stage renal disease; E28.2 Polycystic ovarian syndrome; Z87.891 Personal history of nicotine dependence; F12.90 Cannabis use, unspecified, uncomplicated
CPT/HCPCS: A6250

== ENCOUNTER → 2019-05-09 | Outpatient (CLI) | payer BC | END | disposition home or self-care (01) | LOC: WOUND 09:45 | PROVIDERS: ATTEND Surgery | DX: E11.622 Type 2 diabetes mellitus with other skin ulcer (principal); L97.212 Non-pressure chronic ulcer of right calf with fat layer exposed; L97.222 Non-pressure chronic ulcer of left calf with fat layer exposed; E83.59 Other disorders of calcium metabolism; E11.22 Type 2 diabetes mellitus with diabetic chronic kidney disease; I12.0 Hypertensive chronic kidney disease with stage 5 chronic kidney disease or end stage renal disease; N18.6 End stage renal disease; E28.2 Polycystic ovarian syndrome; Z87.891 Personal history of nicotine dependence; F12.90 Cannabis use, unspecified, uncomplicated ==

== ENCOUNTER 2019-05-16 09:51 | Outpatient (CLI) | payer MEDICARE, BC | END 2019-05-16 09:52 | disposition home or self-care (01) | LOC: WOUND 09:51 | PROVIDERS: ATTEND Surgery | DX: E11.622 Type 2 diabetes mellitus with other skin ulcer (principal); L97.212 Non-pressure chronic ulcer of right calf with fat layer exposed; L97.222 Non-pressure chronic ulcer of left calf with fat layer exposed; E83.59 Other disorders of calcium metabolism; E11.22 Type 2 diabetes mellitus with diabetic chronic kidney disease; I12.0 Hypertensive chronic kidney disease with stage 5 chronic kidney disease or end stage renal disease; N18.6 End stage renal disease; E28.2 Polycystic ovarian syndrome; F12.90 Cannabis use, unspecified, uncomplicated; Z87.891 Personal history of nicotine dependence | CPT/HCPCS: 99213; G0463 ==

== ENCOUNTER 2019-06-06 10:30 | Outpatient (CLI) | payer BC, MEDICARE | END 2019-06-06 10:31 | disposition home or self-care (01) | LOC: WOUND 10:30 | PROVIDERS: ATTEND Surgery | DX: E11.622 Type 2 diabetes mellitus with other skin ulcer (principal); L97.212 Non-pressure chronic ulcer of right calf with fat layer exposed; L97.222 Non-pressure chronic ulcer of left calf with fat layer exposed; E83.59 Other disorders of calcium metabolism; E11.22 Type 2 diabetes mellitus with diabetic chronic kidney disease; I12.0 Hypertensive chronic kidney disease with stage 5 chronic kidney disease or end stage renal disease; N18.6 End stage renal disease; E28.2 Polycystic ovarian syndrome; F12.90 Cannabis use, unspecified, uncomplicated; Z87.891 Personal history of nicotine dependence | CPT/HCPCS: 99213; G0463 ==

== ENCOUNTER 2019-06-25 06:03 | Day surgery (SDC) | payer BC, MEDICARE ==
[~2019-06-25 06:03] MED LIST: ANCEF/STERILE WATER 2 GM/20 ML 2 GM/20 ML SYRINGE IV NR; NACL 0.9% 1000 ML 1,000 ML IV SCH
[2019-06-25 07:24] LABS: Basophils % (Auto) 0.6 % (0.0-1.8); Eosinophils # (Auto) 0.2 K/mm3 (0.0-0.4); Eosinophils % (Auto) 3.9 % (0.0-4.3); Hematocrit 31.3 % (30.3-42.9); Hemoglobin 10.5 gm/dl (10.1-14.3); Lymphocytes # (Auto) 1.3 K/mm3 (1.2-5.4); Lymphocytes % (Auto) 28.2 % (13.4-35.0); Mean Corpuscular HGB Conc 33 % (30-34); Mean Corpuscular Volume 95 fl (79-97); Monocytes # (Auto) 0.3 K/mm3 (0.0-0.8); Monocytes % (Auto) 6.2 % (0.0-7.3); Platelet Count 191 K/mm3 (140-440); Red Cell Distribution Width 16.3 % (13.2-15.2)
[2019-06-25] MEDS ORDERED: RIFADIN ONE (07:25)
[2019-06-25] MEDS ORDERED: XYLOCAINE 1%/ EPI 1:100,000 INFILTRATI ONE (07:25)
[2019-06-25] MEDS ORDERED: HEPARIN 10,000 UNITS/10 ML ONE (07:25)
[2019-06-25] MEDS ORDERED: NACL 0.9% 250ML 0 ML ONE (07:25)
[2019-06-25] MEDS ORDERED: MARCAINE 0.5% INFILTRATI ONE ×3 (07:25→08:37)
--- NOTE | 2019-06-25 07:28 | Anesthesia Day of Surgery ---
Anesthesia Day of Surgery - Day of Surgery Patient Examined: Yes Patient H&P Reviewed: Yes Patient is NPO: Yes Beta Blockers: Yes
[2019-06-25] MEDS ORDERED: NACL 0.9% 500 ML 500 ML ONE (07:29)
--- NOTE | 2019-06-25 07:31 | Anesthesia Consultation ---
Anesthesia Consult and Med Hx Date of service: 06/25/19 - Airway Anesthetic Teeth Evaluation: Good ROM Head & Neck: Adequate Mental/Hyoid Distance: Adequate Mallampati Class: Class II Intubation Access Assessment: Probably Good - Pre-Operative Health Status ASA Pre-Surgery Classification: ASA3 Proposed Anesthetic Plan: General - Pulmonary Hx Smoking: Yes (Former) - Cardiovascular System Hx Hypertension: Yes (ECHO Oct 2018) Hx Coronary Artery Disease: Yes ([facility] Nov 2018; moderate diffuse CAD) Hx Heart Attack/AMI: No (Pt denies. States she can climb two flights of stairs) Hx Peripheral Vascular Disease: Yes - Central Nervous System Hx Psychiatric Problems: Yes (Anxiety/Depression/Bipolar) - Endocrine Hx Renal Disease: Yes (Polycystic Kidney Disease) Hx End Stage Renal Disease: Yes (HD Yesterday) Hx Non-Insulin Dependent Diabetes: Yes - Hematic Hx Anemia: Yes - Other Systems Hx Cancer: No
[2019-06-25] MEDS ORDERED: ZOFRAN IV PRN (07:37)
[2019-06-25] MEDS ORDERED: SUBLIMAZE IV PRN (07:37)
[2019-06-25] MEDS ORDERED: DECADRON ONE (07:38)
[2019-06-25] MEDS ORDERED: SUBLIMAZE ONE (07:38)
[2019-06-25] MEDS ORDERED: ZOFRAN ONE (07:38)
[2019-06-25] MEDS ORDERED: DIPRIVAN 10 MG/ML IV ONE ×2 (07:39→08:38)
[2019-06-25 07:46] LABS: Calcium 8.4 mg/dL (8.4-10.2)
[2019-06-25] MEDS ORDERED: XYLOCAINE 1% 20 mL INFILTRATI ONE ×2 (08:37)
[2019-06-25] MEDS ORDERED: NACL 0.9% 500 ML IRRIGATION ONE (08:37)
[2019-06-25] MEDS ORDERED: HEPARIN 10,000 UNITS/10 ML IV ONE (08:37)
[2019-06-25] MEDS ORDERED: NACL 0.9% IR ONE (08:37)
[2019-06-25] MEDS ORDERED: HEPARIN 10,000 UNITS/10 ML IR ONE (08:37)
[2019-06-25] MEDS ORDERED: NACL 0.9% 500 ML IV ONE (08:37)
[2019-06-25] MEDS ORDERED: PHENYLEPHRINE/NS Syringe 1,000 MCG/10 ML IV ONE (08:53)
[2019-06-25] MEDS ORDERED: NEO SYNEPHRINE ONE (08:53)
--- NOTE | 2019-06-25 09:55 | Operative Report ---
Operative Report Operative Report: Date of procedure: 06/25/2019 Pre-operative diagnosis: End-stage renal disease in need of hemodialysis access Post-operative diagnosis: Same Procedure name(s): Creation of left arm brachial basilic AV fistula via direct anastomosis after Surgeon: Danilo Cummings MD Superintendent Maintenance: None Anesthesia: Gen. with local supplementation EBL: Minimal Specimen(s): None Complications: None Findings: Slightly small brachial artery. Excellent caliber basilic vein. Good thrill and bruit and fistula. Palpable radial pulse. Procedure: Patient in the supine position with the left arm extended the entire extremity was then prepped and draped using standard sterile technique. Duplex probe was used to identify the basilic vein and the median cubital vein and its relationship to the brachial artery. These vessels were marked. A transverse incision was then made just below the antecubital fossa through anesthetized skin centered over the median cubital vein and brachial artery. The incision was deepened through the subcutaneous tissue and then the median cubital vein was mobilized for several centimeters and divided distally. It was hydrodilated and felt to be an acceptable candidate for access. The incision was deepened and the fascia divided and the brachial artery was then mobilized for several centimeters and encircled using vessel loops. The vessel was then occluded and a longitudinal arteriotomy was then made. The vein was spatulated and an end-to-side anastomosis was then created between the vein and the artery using 6-0 Prolene suture in running technique. Prior to the completion of the suture line antegrade and retrograde flushing was performed. The suture line was then completed and flow was established retrograde into the fistula. Subsequently the outflow arterial track was through occluded and antegrade flow was established initially into the vein followed by release of the forearm. Patient tolerated declamping without difficulty. An excellent thrill and bruit was noted in the fistula. Hemostasis was adequate. The incision was then blocked using Marcaine 0.5% plain and then close using 3-0 Vicryl subcutaneous 4-0 Monocryl subcuticular the skin was sealed with Dermabond. A good radial pulse was documented. The patient was then returned to the supine position and moved to the recovery area in stable condition having tolerated the procedure well. Sponge and needle counts were correct.
--- NOTE | 2019-06-25 10:00 | Short Stay Summary ---
Short Stay Documentation Date of service: 06/25/19 Narrative H&P: Patient admitted to the operative suite for outpatient creation of an AV fistula in her left arm - History H&P: obtained from office - Allergies and Medications Current Medications: Allergies No Known Allergies Allergy (Verified 06/23/19 09:00) Home Medications Medication Instructions Recorded Confirmed Last Taken Type traMADol [Ultram 50 MG tab] 50 mg PO Q6H PRN 11/29/18 06/23/19 06/25/19 04:00 History Aspirin EC 81 mg PO QDAY #30 tablet 12/06/18 06/23/19 06/25/19 04:00 Rx AtorvaSTATin [Lipitor] 40 mg PO QHS #30 tablet 12/06/18 06/25/19 06/24/19 20:00 Rx ISOSORBIDE MONOnitrate [Imdur ER] 30 mg PO QDAY #30 tablet 12/06/18 06/23/19 06/25/19 04:00 Rx Labetalol [Labetalol 200mg TAB] 200 mg PO BID #60 tablet 12/06/18 06/23/19 06/25/19 04:00 Rx NIFEdipine XL [Procardia Xl] 60 mg PO Q12HR #60 tablet 12/06/18 06/23/19 06/25/19 04:00 Rx Active Medications Fentanyl (Sublimaze) 50 mcg IV Q5MIN PRN PRN Reason: Pain , Severe (7-10) Stop: 06/25/19 20:00 Sodium Chloride (Nacl 0.9% 1000 Ml) 1,000 mls @ 42 mls/hr IV DIRECT NIRANJAN Last Admin: 06/25/19 07:00 Dose: 42 mls/hr Documented by: Cefazolin Sodium (Ancef/Sterile Water 2 Gm/20 Ml) 2 gm in 20 mls @ 80 mls/hr IV PREOP NR; Protocol Stop: 06/25/19 23:59 Ondansetron HCl (Zofran) 4 mg IV ONCE PRN PRN Reason: Nausea And Vomiting - Brief post op/procedure progress note Date of procedure: 06/25/19 Procedure: Pre-operative diagnosis: End-stage renal disease in need of hemodialysis access Post-operative diagnosis: Same Procedure name(s): Creation of left arm brachial basilic AV fistula via direct anastomosis after Surgeon: Danilo Cummings MD Food Production Associate: None Anesthesia: Gen. with local supplementation EBL: Minimal Specimen(s): None Complications: None Findings: Slightly small brachial artery. Excellent caliber basilic vein. Good thrill and bruit and fistula. Palpable radial pulse. Procedure: Patient in the supine position with the left arm extended the entire extremity was then prepped and draped using standard sterile technique. Duplex probe was used to identify the basilic vein and the median cubital vein and its relationship to the brachial artery. These vessels were marked. A transverse incision was then made just below the antecubital fossa through anesthetized skin centered over the median cubital vein and brachial artery. The incision was deepened through the subcutaneous tissue and then the median cubital vein was mobilized for several centimeters and divided distally. It was hydrodilated and felt to be an acceptable candidate for access. The incision was deepened and the fascia divided and the brachial artery was then mobilized for several centimeters and encircled using vessel loops. The vessel was then occluded and a longitudinal arteriotomy was then made. The vein was spatulated and an end-to-side anastomosis was then created between the vein and the artery using 6-0 Prolene suture in running technique. Prior to the completion of the suture line antegrade and retrograde flushing was performed. The suture line was then completed and flow was established retrograde into the fistula. Subsequently the outflow arterial track was through occluded and antegrade flow was established initially into the vein followed by release of the forearm. Patient tolerated declamping without difficulty. An excellent thrill and bruit was noted in the fistula. Hemostasis was adequate. The incision was then blocked using Marcaine 0.5% plain and then close using 3-0 Vicryl subcutaneous 4-0 Monocryl subcuticular the skin was sealed with Dermabond. A good radial pulse was documented. The patient was then returned to the supine position and moved to the recovery area in stable condition having tolerated the procedure well. Sponge and needle counts were correct. - Hospital course Hospital course: Unremarkable - Disposition Condition at discharge: Good Disposition: DC-01 TO HOME OR SELFCARE - Discharge Diagnoses (1) ESRD (end stage renal disease) Status: Chronic Short Stay Discharge Plan Activity: advance as tolerated Weight Bearing Status: Full Weight Bearing Diet: renal Wound: keep clean and dry Special Instructions: no heavy lifting, other (hand exercises via squeeze ball) Follow up with: PRIMARY CARE, [Primary Care Provider] - 7 Days DANILO CUMMINGS MD [Staff Physician] - 14 Days Prescriptions: HYDROcodone/APAP 5-325 [[place] 5/325] 1 each PO Q6HR PRN #20 tablet PRN Reason: Pain, Moderate (4-6)
[2019-06-25 10:42] VITALS: BP 127/76
[2019-06-25] MEDS ORDERED: NORCO 5/325 PO PRN (11:00)
--- NOTE | 2019-06-25 16:16 | Post Anesthesia Evaluation ---
- Post Anesthesia Evaluation Patient Participated: Yes Airway Patent: Yes Stable Respiratory Function: Yes Nausea/Vomiting: No Temp > 96.8F: Yes Pain Manageable: Yes Adequeate Hydration: Yes Anesthesia Complications: No Block Receding Appropriately: Not Applicable Patient on Ventilator: No
== END 2019-06-25 11:35 | disposition home or self-care (01) ==
LOC: OR 06:03
PROVIDERS: ATTEND Surgery Vascular Surgery
DX: I12.0 Hypertensive chronic kidney disease with stage 5 chronic kidney disease or end stage renal disease (principal); E11.22 Type 2 diabetes mellitus with diabetic chronic kidney disease; N18.6 End stage renal disease; E11.51 Type 2 diabetes mellitus with diabetic peripheral angiopathy without gangrene; I25.2 Old myocardial infarction; I42.9 Cardiomyopathy, unspecified; I87.8 Other specified disorders of veins; I25.10 Atherosclerotic heart disease of native coronary artery without angina pectoris; F31.9 Bipolar disorder, unspecified; F41.9 Anxiety disorder, unspecified; Z83.3 Family history of diabetes mellitus; Z87.440 Personal history of urinary (tract) infections; Z79.899 Other long term (current) drug therapy; Z79.82 Long term (current) use of aspirin; Z87.891 Personal history of nicotine dependence; Z82.49 Family history of ischemic heart disease and other diseases of the circulatory system; Z98.890 Other specified postprocedural states
CPT/HCPCS: 36415; 36821; 80048; 81025; 82803; 82962; 85025; J0690; J1100; J2370; J2405; J2704; J3010; J7030; J1644; J3490; J7040; J7050

== ENCOUNTER 2020-07-14 23:07 | Emergency (ER) | payer BC, MEDICARE ==
[2020-07-15] MEDS ORDERED: ONDANSETRON 4 MG ODT TAB ONE ×2 (00:08→04:35)
[2020-07-15] MEDS ORDERED: ONDANSETRON 4 MG ODT TAB PO ONE (00:15)
[2020-07-15 01:04] LABS: Basophils % (Auto) 0.3 % (0.0-1.8); Eosinophils % (Auto) 0.1 % (0.0-4.3); Hematocrit 28.3 % (30.3-42.9); Hemoglobin 9.7 gm/dl (10.1-14.3); Lymphocytes % (Auto) 13.4 % (13.4-35.0); Mean Corpuscular HGB Conc 34 % (30-34); Mean Corpuscular Volume 88 fl (79-97); Monocytes # (Auto) 0.3 K/mm3 (0.0-0.8); Platelet Count 141 K/mm3 (140-440); Red Blood Count 3.22 M/mm3 (3.65-5.03); Red Cell Distribution Width 16.6 % (13.2-15.2)
[2020-07-15 01:14] LABS: Calcium 9.6 mg/dL (8.4-10.2)
[2020-07-15] MEDS ORDERED: ONDANSETRON 4 MG/2 ML INJ ONE ×2 (07:58→17:18)
[2020-07-15] MEDS ORDERED: ONDANSETRON 4 MG/2 ML INJ IV ONE ×2 (08:14→17:18)
[2020-07-15] MEDS ORDERED: ACETAMINOPHEN 500 MG TAB ONE (08:52)
[2020-07-15] MEDS ORDERED: ACETAMINOPHEN 500 MG TAB PO ONE (08:53)
--- NOTE | 2020-07-15 09:19 | Emergency Department Report ---
HPI - General Chief Complaint: Fever Time Seen by Provider: 07/15/20 09:01 - HPI HPI: Room 10 The patient is a 40-year-old female present with a chief complaint of nausea vomiting and diarrhea. The patient states her symptoms began 2 days ago with nausea vomiting and diarrhea. Patient states she also had a headache but denies any recent trauma. Patient denies abdominal pain but admits to subjective fever. The patient states she is only had a cough after vomiting. Patient denies recent antibiotic use. Patient states she is unaware of any confirmed COVID positive case contact and states she tested negative for COVID in March ED Past Medical Hx - Past Medical History Previous Medical History?: Yes Hx Hypertension: Yes (ECHO Oct 2018) Hx Diabetes: Yes (Not being treated at present) Hx Renal Disease: Yes (Polycystic Kidney Disease, dialysis ) Additional medical history: FIBROIDS. POLYCYSTIC KIDNEYS. POLYCYSTIC OVARIES - Surgical History Additional Surgical History: D & C. OVARY SURGERY? - Family History Family history: no significant - Social History Smoking Status: Former Smoker (None x6 years) Substance Use Type: None (Denies illicit drug use) - Medications Home Medications: Home Medications Medication Instructions Recorded Confirmed Last Taken Type traMADoL [Ultram 50 MG tab] 50 mg PO Q6H PRN 11/29/18 06/23/19 06/25/19 04:00 History Aspirin EC [Halfprin EC] 81 mg PO QDAY #30 tablet 12/06/18 06/23/19 06/25/19 04:00 Rx AtorvaSTATin [Lipitor] 40 mg PO QHS #30 tablet 12/06/18 06/25/19 06/24/19 20:00 Rx ISOSORBIDE MONOnitrate [Imdur ER] 30 mg PO QDAY #30 tablet 12/06/18 06/23/19 06/25/19 04:00 Rx NIFEdipine XL [Procardia Xl] 60 mg PO Q12HR #60 tablet 12/06/18 06/23/19 06/25/19 04:00 Rx labetaloL [Labetalol 200mg TAB] 200 mg PO BID #60 tablet 12/06/18 06/23/19 06/25/19 04:00 Rx HYDROcodone/APAP 5-325 [[place] 1 each PO Q6HR PRN #20 tablet 06/25/19 Unknown Rx 5/325] Promethazine [Phenergan] 25 mg PO Q6HR PRN #20 tab 07/15/20 Unknown Rx Promethazine [Phenergan] 25 mg VT Q6HR PRN #5 supp.rect 07/15/20 Unknown Rx levoFLOXacin [Levaquin TAB] 500 mg PO QDAY #7 tablet 07/15/20 Unknown Rx metroNIDAZOLE [Flagyl] 500 mg PO TID #21 tab 07/15/20 Unknown Rx ED Review of Systems ROS: Stated complaint: FEVER/NAUSEA/VOMITING Other details as noted in HPI Constitutional: fever Respiratory: cough (With vomiting) Gastrointestinal: nausea, vomiting, diarrhea. denies: abdominal pain Physical Exam - Physical Exam Vital Signs: Vital Signs 07/14/20 07/15/20 07/15/20 23:55 08:09 08:15 Temperature 99.8 F H Pulse Rate 72 72 Respiratory 18 35 H Rate Blood Pressure 189/75 202/84 O2 Sat by Pulse 93 93 96 Oximetry 07/15/20 07/15/20 08:30 08:44 Temperature 101.6 F H Pulse Rate 71 Respiratory 33 H Rate Blood Pressure 205/87 O2 Sat by Pulse 99 Oximetry Physical Exam: GENERAL: The patient is well-developed well-nourished female lying on stretcher not appearing to be in acute distress. [] HEENT: Normocephalic. Atraumatic. Extraocular motions are intact. Patient has moist mucous membranes. NECK: Supple. Trachea midline CHEST/LUNGS: Clear to auscultation. There is no respiratory distress noted. HEART/CARDIOVASCULAR: Regular. There is no tachycardia. There is no gallop rub or murmur. ABDOMEN: Abdomen is soft, nontender. Patient has normal bowel sounds. There is no abdominal distention. SKIN: There is no rash. There is no edema. There is no diaphoresis. NEURO: The patient is awake, alert, and oriented. The patient is cooperative. The patient has no focal neurologic deficits. The patient has normal speech MUSCULOSKELETAL: There is no evidence of acute injury. ED Course Vital Signs 07/14/20 07/15/20 07/15/20 23:55 08:09 08:15 Temperature 99.8 F H Pulse Rate 72 72 Respiratory 18 35 H Rate Blood Pressure 189/75 202/84 O2 Sat by Pulse 93 93 96 Oximetry 07/15/20 07/15/20 08:30 08:44 Temperature 101.6 F H Pulse Rate 71 Respiratory 33 H Rate Blood Pressure 205/87 O2 Sat by Pulse 99 Oximetry - Consultations Consultation #1: Civil Engineer In Training Dr. Craft was consulted and states the patient may receive IV contrast and he will dialyze her from the ED before she is discharged home if necessary 07/15/20 15:07 Pulmonology paged 07/15/20 15:[address] scan discussed with Dr. 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 ED Medical Decision Making - Lab Data Result diagrams: 07/15/20 00:34 07/15/20 00:34 Laboratory Tests 07/15/20 07/15/20 07/15/20 00:34 00:34 09:24 WBC 7.8 RBC 3.22 L Hgb 9.7 L Hct 28.3 L MCV 88 MCH 30 MCHC 34 RDW 16.6 H Plt Count 141 Lymph % (Auto) 13.4 [place] % (Auto) 4.0 Eos % (Auto) 0.1 Baso % (Auto) 0.3 Lymph # 1.0 L [place] # 0.3 Eos # 0.0 Baso # 0.0 Seg Neutrophils % 82.2 H Seg Neutrophils # 6.4 Sodium 138 Potassium 4.4 Chloride 87.8 L Carbon Dioxide 28 Anion Gap 27 BUN 57 H Creatinine 14.2 H Estimated GFR 3 BUN/Creatinine Ratio 4 Glucose 108 H Calcium 9.6 Total Bilirubin Direct Bilirubin AST ALT Alkaline Phosphatase Total Protein Albumin Albumin/Globulin Ratio Lipase HCG, Qual Hep Bs Antigen Non-reactive Hep B Core IgM Ab Non-reactive Hepatitis C Antibody Non-reactive 07/15/20 07/15/20 09:25 09:25 WBC RBC Hgb Hct MCV MCH MCHC RDW Plt Count Lymph % (Auto) [place] % (Auto) Eos % (Auto) Baso % (Auto) Lymph # [place] # Eos # Baso # Seg Neutrophils % Seg Neutrophils # Sodium Potassium Chloride Carbon Dioxide Anion Gap BUN Creatinine Estimated GFR BUN/Creatinine Ratio Glucose Calcium Total Bilirubin 0.40 Direct Bilirubin < 0.2 AST 11 ALT < 5 L Alkaline Phosphatase 103 Total Protein 7.2 Albumin 4.2 Albumin/Globulin Ratio 1.4 Lipase 26 HCG, Qual Negative Hep Bs Antigen Hep B Core IgM Ab Hepatitis C Antibody - Radiology Data Radiology results: report reviewed (CT abdomen pelvis, CT head, CTA chest), image reviewed (CT abdomen pelvis, CT head, CTA chest) [facility] [address] [place] [address] Cat Scan Report Signed Patient: DES VICENTE MR# : [id number] : 1980 Acct:[id number] Age/Sex: 40 / F ADM Date: 07/14/20 Loc: ED Attending Dr: Ordering Physician: BRODY BULLOCK MD Date of Service: 07/15/20 Procedure(s): CT abdomen pelvis wo con Accession Number(s): [id number] cc: BRODY BULLOCK MD CT ABDOMEN AND PELVIS WITHOUT CONTRAST INDICATION / CLINICAL INFORMATION: Nausea vomiting diarrhea. TECHNIQUE: Axial CT images were obtained through the abdomen and pelvis without IV contrast. All CT scans at this location are performed using CT dose reduction for ALARA by means of automated exposure control. COMPARISON: CT abdomen pelvis 11/24/2018 FINDINGS: LOWER CHEST: Multivessel coronary artery atherosclerotic calcification. No nodular density in the left lung base axial series 2 image 27 measuring 1.3 cm which is at the distal aspect of the posterior basal segment pulmonary artery. There is adjacent mild subsegmental consolidative change HEPATOBILIARY: Subcentimeter hypodense focus at the dome likely representing a cyst. Normal gallbladder and bile ducts. PANCREAS: No significant abnormality. SPLEEN: Upper limits of normal in size without focal lesion. ADRENALS: No significant abnormality. GENITOURINARY: Bilateral polycystic morphology with slightly greater calcific density at the bilateral inferior pole cysts. Few of the cysts measure 40-65 Hounsfield units in attenuation which is greater than expected for a simple cyst and less than expected for hyperdense cyst. No obstructive uropathy. GASTROINTESTINAL/MESENTERY: No bowel obstruction or inflammation. Normal appearing appendix. No free air or fluid. RETROPERITONEUM: Multiple normal-sized lymph nodes similar when compared to the prior examination. REPRODUCTIVE ORGANS: Small cystic foci at the cervical uterine junction consistent with nabothian cysts. No significant abnormality. VASCULAR: Extensive atherosclerotic calcification. SKELETAL SYSTEM: No significant abnormality. ADDITIONAL FINDINGS: Mild anasarca. IMPRESSION: 1. No acute intra-abdominal or intrapelvic abnormality. 2. 1.3 cm nodular density in the left lung base in close acidity to the posterior basal segment pulmonary artery. Pulmonary artery aneurysm not completely excluded. Consider further evaluation with contrast-enhanced CT thorax. 3. Polycystic morphology kidneys. Few cysts demonstrate attenuation different than expected for simple or hyperdense cyst. Consider correlation with renal ultrasound. 4. Extensive atherosclerosis. Signer Name: Rochelle Cabrera MD Signed: 07/15/2020 10:55 AM Workstation Name: [id number] Transcribed By: Dictated By: ROCHELLE CABRERA III Electronically Authenticated By: ROCHELLE CABRERA III Signed Date/Time: 07/15/20 1055 DD/ 1041 TD/TT: [facility] [address] [id number] Cat Scan Report Signed Patient: DES VICENTE MR# : [id number] : 1980 Acct:[id number] Age/Sex: 40 / F ADM Date: 07/14/20 Loc: ED Attending Dr: Ordering Physician: BRODY BULLOCK MD Date of Service: 07/15/20 Procedure(s): CT head/brain wo con Accession Number(s): [id number] cc: BRODY BULLOCK MD NONENHANCED CT SCAN OF THE HEAD: INDICATION / CLINICAL INFORMATION: 40 years Female; Frontal headache. TECHNIQUE: Routine CT head without contrast. All CT scans at this location are performed using CT dose reduction for ALARA by means of automated exposure control. COMPARISON: None. FINDINGS: BRAIN / INTRACRANIAL CONTENTS: No acute hemorrhage, mass effect, midline shift, hydrocephalus, or acute, large territorial infarct. Sulci in the left cerebral hemisphere along with the extracerebral space more prominent compared to the right side; this is nonspecific; small chronic lacune in the right caudate; No significant white matter abnormality. CRANIOCERVICAL JUNCTION: No significant abnormality. ORBITS: No significant abnormality of visualized orbits. SINUSES / MASTOIDS: Large retention cyst in the right maxillary sinus and smaller retention cyst anteriorly on the left side ADDITIONAL FINDINGS: None. IMPRESSION: No acute pa renchymal lesion in the brain Signer Name: Cedrick Mena MD Signed: 07/15/2020 10:47 AM Workstation Name: [id number] Transcribed By: BS Dictated By: Cedrick Webber MD Electronically Authenticated By: Cedrick Webebr MD Signed Date/Time: 07/15/20 1047 [facility] [address] [place] [address] Cat Scan Report Signed Patient: DES VICENTE MR# : [id number] : 1980 Acct:[id number] Age/Sex: 40 / F ADM Date: 07/14/20 Loc: ED Attending Dr: Ordering Physician: BRODY BULLOCK MD Date of Service: 07/15/20 Procedure(s): CT angio chest Accession Number(s): [id number] cc: BRODY BULLOCK MD CTA CHEST WITH CONTRAST INDICATION : Abnormal finding on CT abdomen and pelvis. Pulmonary lesion TECHNIQUE: Axial imaging performed through the chest, with contrast bolus timing set to maximize opacification of the pulmonary arteries. Sagittal and coronal reformatted images. 3-plane MIP reformatted images were obtained. All CT scans at this location are performed using CT dose reduction for ALARA by means of automated exposure control. 100 mL of intravenous contrast administered. COMPARISON: Noncontrast CT abdomen and pelvis performed the same day FINDINGS: Bolus: Contrast bolus timing is adequate. PTE: No filling defect is present to suggest PTE. The previously described 1.3 cm nodular density at the left lung base does fill with contrast and appears to represent a small pulmonary arterial aneurysm or AVM. Mediastinum: Heart size is at the upper limits of normal or mildly increased. The thoracic aorta is within normal limits. Is minor subpleural scarring in the anterior right upper lobe and posterior left lower lobe. No evidence for mass or infiltrate. Lungs: Lungs are clear. Bones: Degenerative changes in the spine with nothing acute. IMPRESSION: No evidence for pulmonary embolus. 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 Borderline heart size. Mild subpleural scarring in the right upper lobe and left lower lobe. Signer Name: Sea Lindsay Jr, MD Signed: 07/15/2020 2:48 PM Workstation Name: [id number] Transcribed By: TTR Dictated By: SEA LINDSAY JR, MD Electronically Authenticated By: SEA LINDSAY JR, MD Signed Date/Time: 07/15/20 1448 DD/ 1442 TD/TT: - Differential Diagnosis Gastroenteritis, COVID-19, partial small bowel obstruction Critical care attestation.: If time is entered above; I have spent that time in minutes in the direct care of this critically ill patient, excluding procedure time. ED Disposition Clinical Impression: Nausea vomiting and diarrhea, Pulmonary artery aneurysm Disposition: DC- TO HOME OR SELFCARE Is pt being admited?: No Does the pt Need Aspirin: No Condition: Stable Prescriptions: metroNIDAZOLE [Flagyl] 500 mg PO TID #21 tab levoFLOXacin [Levaquin TAB] 500 mg PO QDAY #7 tablet Promethazine [Phenergan] 25 mg PO Q6HR PRN #20 tab PRN Reason: Nausea Promethazine [Phenergan] 25 mg VT Q6HR PRN #5 supp.rect PRN Reason: Vomiting Referrals: PRIMARY CARE,MD [Primary Care Provider] - 3-5 Days ZARI MORALES MD [Staff Physician] - 3-5 Days (Dr. Morales is a waste transportation technician. Please follow-up with him for further evaluation) CHI GRIGSBY MD [Staff Physician] - 3-5 Days (Dr. Grigsby is a central services tech. Please follow-up with him for further evaluation)
[2020-07-15 10:13] LABS: Alanine Aminotransferase < 5 units/L (7-56); Albumin 4.2 g/dL (3.9-5); Bilirubin,Direct < 0.2 mg/dL (0-0.2)
--- NOTE | 2020-07-15 10:52 | Cat Scan Report ---
NONENHANCED CT SCAN OF THE HEAD: INDICATION / CLINICAL INFORMATION: 40 years Female; Frontal headache. TECHNIQUE: Routine CT head without contrast. All CT scans at this location are performed using CT dos e reduction for ALARA by means of automated exposure control. COMPARISON: None. FINDINGS: BRAIN / INTRACRANIAL CONTENTS: No acute hemorrhage, mass effect, midline shift, hydrocephalus, or acu te, large territorial infarct. Sulci in the left cerebral hemisphere along with the extracerebral spa ce more prominent compared to the right side; this is nonspecific; small chronic lacune in the right caudate; No significant white matter abnormality. CRANIOCERVICAL JUNCTION: No significant abnormality. ORBITS: No significant abnormality of visualized orbits. SINUSES / MASTOIDS: Large retention cyst in the right maxillary sinus and smaller retention cyst ante riorly on the left side ADDITIONAL FINDINGS: None. IMPRESSION: No acute parenchymal lesion in the brain Signer Name: Cedrick Mena MD Signed: 07/15/2020 10:47 AM Workstation Name: [id number]
--- NOTE | 2020-07-15 11:00 | Cat Scan Report ---
CT ABDOMEN AND PELVIS WITHOUT CONTRAST INDICATION / CLINICAL INFORMATION: Nausea vomiting diarrhea. TECHNIQUE: Axial CT images were obtained through the abdomen and pelvis without IV contrast. All CT scans at [facility] location are performed using CT dose reduction for ALARA by means of automated exposure control. COMPARISON: CT abdomen pelvis 11/24/2018 FINDINGS: LOWER CHEST: Multivessel coronary artery atherosclerotic calcification. No nodular density in the lef t lung base axial series 2 image 27 measuring 1.3 cm which is at the distal aspect of the posterior b [place] segment pulmonary artery. There is adjacent mild subsegmental consolidative change HEPATOBILIARY: Subcentimeter hypodense focus at the dome likely representing a cyst. Normal gallbladd er and bile ducts. PANCREAS: No significant abnormality. SPLEEN: Upper limits of normal in size without focal lesion. ADRENALS: No significant abnormality. GENITOURINARY: Bilateral polycystic morphology with slightly greater calcific density at the bilatera l inferior pole cysts. Few of the cysts measure 40-65 Hounsfield units in attenuation which is greate r than expected for a simple cyst and less than expected for hyperdense cyst. No obstructive uropathy . GASTROINTESTINAL/MESENTERY: No bowel obstruction or inflammation. Normal appearing appendix. No free air or fluid. RETROPERITONEUM: Multiple normal-sized lymph nodes similar when compared to the prior examination. REPRODUCTIVE ORGANS: Small cystic foci at the cervical uterine junction consistent with nabothian cys ts. No significant abnormality. VASCULAR: Extensive atherosclerotic calcification. SKELETAL SYSTEM: No significant abnormality. ADDITIONAL FINDINGS: Mild anasarca. IMPRESSION: 1. No acute intra-abdominal or intrapelvic abnormality. 2. 1.3 cm nodular density in the left lung base in close acidity to the posterior basal segment pulmo nary artery. Pulmonary artery aneurysm not completely excluded. Consider further evaluation with cont rast-enhanced CT thorax. 3. Polycystic morphology kidneys. Few cysts demonstrate attenuation different than expected for simpl e or hyperdense cyst. Consider correlation with renal ultrasound. 4. Extensive atherosclerosis. Signer Name: Rasta Cabrera MD Signed: 07/15/2020 10:55 AM Workstation Name: [id number]
[2020-07-15] MEDS ORDERED: fentaNYL 100 MCG/2 ML INJ IV ONE (11:12)
[2020-07-15] MEDS ORDERED: METOCLOPRAMIDE 10 MG/2 ML INJ IV ONE (11:13)
[2020-07-15] MEDS ORDERED: fentaNYL 100 MCG/2 ML INJ ONE (11:15)
[2020-07-15] MEDS ORDERED: SODIUM CHLORIDE 0.9% 100 ML IV PRN (12:16)
[2020-07-15 14:07] LABS: Hepatitis B Surface Antigen Non-Reactive (Negative); Hepatitis C Virus Antibody Non-Reactive (NonReactive)
--- NOTE | 2020-07-15 14:52 | Cat Scan Report ---
CTA CHEST WITH CONTRAST INDICATION : Abnormal finding on CT abdomen and pelvis. Pulmonary lesion TECHNIQUE: Axial imaging performed through the chest, with contrast bolus timing set to maximize opa cification of the pulmonary arteries. Sagittal and coronal reformatted images. 3-plane MIP reformatte d images were obtained. All CT scans at this location are performed using CT dose reduction for ALAR A by means of automated exposure control. 100 mL of intravenous contrast administered. COMPARISON: Noncontrast CT abdomen and pelvis performed the same day FINDINGS: Bolus: Contrast bolus timing is adequate. PTE: No filling defect is present to suggest PTE. The previously described 1.3 cm nodular density at the left lung base does fill with contrast and appears to represent a small pulmonary arterial aneur ysm or AVM. Mediastinum: Heart size is at the upper limits of normal or mildly increased. The thoracic aorta is within normal limits. Is minor subpleural scarring in the anterior right upper lobe and posterior le ft lower lobe. No evidence for mass or infiltrate. Lungs: Lungs are clear. Bones: Degenerative changes in the spine with nothing acute. IMPRESSION: No evidence for pulmonary embolus. 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 Borderline heart size. Mild subpleural scarring in the right upper lobe and left lower lobe. Signer Name: Sea Lindsay Jr, MD Signed: 07/15/2020 2:48 PM Workstation Name: [id number]
[2020-07-15] MEDS ORDERED: metroNIDAZOLE 500 MG TAB PO ONE (15:13)
[2020-07-15] MEDS ORDERED: levoFLOXacin 500 MG TAB PO ONE (15:13)
[2020-07-15] MEDS ORDERED: hydrALAZINE 20 MG/1 ML INJ IV ONE (15:34)
[2020-07-15] MEDS ORDERED: hydrALAZINE 20 MG/1 ML INJ ONE (15:41)
[2020-07-15] MEDS ORDERED: metroNIDAZOLE 500 MG TAB ONE (17:53)
[2020-07-15] MEDS ORDERED: levoFLOXacin 500 MG TAB ONE (17:53)
[2020-07-15 18:27] VITALS: BP 210/89
== END 2020-07-15 18:27 | disposition home or self-care (01) ==
LOC: ED 23:07
DX: I28.1 Aneurysm of pulmonary artery (principal); R11.2 Nausea with vomiting, unspecified; R19.7 Diarrhea, unspecified; I10 Essential (primary) hypertension; E11.9 Type 2 diabetes mellitus without complications; Z87.891 Personal history of nicotine dependence; Z79.82 Long term (current) use of aspirin; Z79.899 Other long term (current) drug therapy; Z98.890 Other specified postprocedural states
CPT/HCPCS: 36415; 70450; 71275; 74176; 80048; 80074; 80076; 83690; 84703; 85025; 96374; 96375; 96376; 99284; J0360; J2405; J2765; J3010; Q9967; Q0162